=== PATIENT | female | born 1945 | race Caucasian/White ===

== ENCOUNTER → 2022-09-06 13:02 | Outpatient (BNVA) | payer MEDICARE, MEDICAID, SELFPAY | PROVIDERS: PCP Internal Medicine; Visit Provider Student in an Organized Health Care Education/Training Program | DX: M06.9 Rheumatoid arthritis, unspecified (principal); I73.9 Peripheral vascular disease, unspecified; R06.02 Shortness of breath; Z11.59 Encounter for screening for other viral diseases; Z11.7 Encounter for testing for latent tuberculosis infection; Z13.21 Encounter for screening for nutritional disorder | CPT/HCPCS: 99202 ==

== ENCOUNTER → 2022-12-06 12:53 | Outpatient (BNVA) | payer MEDICARE, MEDICAID, SELFPAY | PROVIDERS: PCP Internal Medicine; Visit Provider Student in an Organized Health Care Education/Training Program | DX: M06.9 Rheumatoid arthritis, unspecified (principal); R06.02 Shortness of breath; M85.80 Other specified disorders of bone density and structure, unspecified site; N95.1 Menopausal and female climacteric states; Z79.631 Long term (current) use of antimetabolite agent | CPT/HCPCS: 99212 ==

== ENCOUNTER 2023-05-29 13:42 | Outpatient (AMB) | payer MEDICARE, MEDICAID, SELFPAY ==
[2023-05-29 13:46] VITALS: BP 120/62; PULSE 73; TEMP 36.2; O2SAT 95; BMI 33.3
--- NOTE | 2023-05-29 13:46 | A.OFFVIS_ITS ---
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: No Accompanied by: Spouse Allergies betadyne Allergy (Unknown, Uncoded 05/29/23 13:48) Unknown Medication List - Last Reconciled 05/29/23 by Robin Bullard MD abatacept (Orencia ClickJect) 125 mg subcut QWEEK acetaminophen (Tylenol Extra Strength) 500 mg PO TID atenolol 50 mg PO DAILY calcitriol 0.5 mcg PO .weekly calcitriol 0.5 mcg PO .weekly cevimeline 30 mg PO TID cholecalciferol (vitamin D3) 25 mcg PO DAILY folic acid 1 mg PO DAILY lidocaine 5% 1 patch topical DAILY losartan 50 mg PO DAILY losartan 25 mg PO BEDTIME magnesium 400 mg PO DAILY magnesium 400 mg PO BEDTIME methotrexate sodium 10 mg (4 x 2.5 mg) PO QWEEK multivitamin 1 tab PO DAILY omega-3 fatty acids 1,000 mg PO DAILY omeprazole 20 mg PO BID rosuvastatin 40 mg PO DAILY saliva substitute combo no.9 (Biotene Dry Mouth Oral Rinse mouthwash) 15 mL mucous membrane TID-QID PRN torsemide 10 mg PO DAILY venlafaxine ER 75 mg PO DAILY HPI HPI Comments History of Present Illness Details 78-year-old female with erosive RA retur ns for follow-up. Compliant with Orencia once weekly and methotrexate 4 tabs once weekly. Doing well overall. Patient states that she was evaluated by fuel quality tech and had PFTs done. Results not available to me. Will attempt to retrieve. Her joint pain has not changed. States that will be scheduled for right shoulder replacement in August. States that she has been more active recently as her had a stroke. Now she is the one who has to drive. Initial history: This is a 77-year-old female with a history of anxiety, obstructive sleep apnea, hypertension, fibromyalgia, dyslipidemia who presents for rheumatoid arthritis. Patient was diagnosed with rheumatoid arthritis more than [address] Garrett. She is not aware of her previous DMARDs but she had been on the combination p.o. methotrexate and weekly Orencia for more than 5 years with apparent good control of her RA. Patient states that her RA is currently well controlled. Her main complaint is left foot pain. [facility] Medical History (Updated 05/29/23 @ 14:43 by Robin Bullard MD) Transient global amnesia Chronic ankle pain Edema, lower extremity Fibromyalgia Spinal stenosis of lumbar region Rheumatoid arthritis GERD (gastroesophageal reflux disease) Chronic diastolic heart failure Essential hypertension Autonomic neuropathy GRACIELA (obstructive sleep apnea) Depression Obesity Mixed hyperlipidemia Surgical History History of cataract surgery History of right hip replacement History of left hip replacement S/P right rotator cuff repair History of left knee replacement History of total right knee replacement H/O right wrist surgery S/P insertion of spinal cord stimulator Hx of colonoscopy H/O arthroscopy of shoulder History of back surgery Hx of appendectomy History of mitral valve repair Family History Father Prostate cancer Mother Colon cancer Social History Household Members: Spouse Housing: House Alcohol intake: current Alcohol intake frequency: holidays/special occasions only Alcohol type: wine Patient Tobacco Use Status: Never used Tobacco e-Cigarette/Vaping Use: Never Used service: No Current occupational status: retired 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 Review of Systems Card Reports dyspnea Resp Reports dyspnea GI Reports no additional complaints Musc Reports arthralgias and Reports stiffness Physical Exam Vital Signs: Last Vital Signs Temp 97.2 F 05/29/23 13:46 Pulse 73 05/29/23 13:46 BP 120/62 05/29/23 13:46 Pulse Ox 95 05/29/23 13:46 BMI result Body Mass Index 33.3 Const General: cooperative, healthy appearing, comfortable and no acute distress Nutritional Appearance: obese Orientation/consciousness: patient oriented x3 Limitations: ambulation with cane HEENT Head: Yes normocephalic and Yes atraumatic Mouth: oropharynx normal Resp Effort & Inspection: able to speak in complete sentences Auscultation: clear to auscultation bilaterally Cardio Rate: regular rate Rhythm: regular rhythm GI Inspection: No distended Palpation (GI): Soft to palpation and nontender Skin Other: Hirsutism Neuro General: patient oriented x3 Extrem Other: sequelae of deforming RA Bilateral wrist synovial thickening and hypertrophy of left wrist there does not seem to be active synovitis Bilateral significant synovial thickening of the MCPs Osteoarthritic changes of both hands Normal range of motion of both shoulders Bilateral claw feet deformity Purplish discoloration left foot, cool to touch Normal nailfold capillaroscopy Results Reviewed Results Reviewed: Labs 05/2022? ESR 4 CBC? With mild absolute lymphocytosis 3.18 (<3.1) few atypical lymphocytes CRP normal CMP unremarkable except for creatinine 1.0 with GFR 58 Labs in 09/2022 RF/CCP negative Normal SPEP ESR/CRP normal Hepatitis panel and T spot negative Assessment & Plan Assessment & Plan (1) Rheumatoid arthritis: Comment: Per notes it states that it is seropositive Labs in 10/03 showed negative RF negative CCP Code(s): M06.9 - Rheumatoid arthritis, unspecified Qualifiers: Rheumatoid arthritis location: multiple sites Rheumatoid factor presence: unspecified presence Qualified Code(s): M06.9 - Rheumatoid arthritis, unspecified Plan: This is a 78-year-old female with deforming RA presents for follow-up. RA well controlled on current regimen of methotrexate 10 mg once weekly and Orencia 125 mg once weekly Continue Orencia weekly and methotrexate 10 mg weekly, folic acid 1 mg a Patient's left foot is purplish and cool to touch. Bilateral lower extremity ABIs within normal. Per neurology this can be sequelae of peripheral neuropathy and sequelae of parietal region of traumatic brain injury Labs before next visit in 4 months (2) Shortness of breath: Code(s): R06.02 - Shortness of breath Plan: gets short of breath with minimal activity unclear whether this is cardiogenic verses pulmonary. Patient was evaluated by a fuel quality tech and PFTs were ordered. Will attempt to retrieve the PFTs. 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 Discussed risks and benefits of bisphosphonates. Patient agreed to proceed. Will hold off until after her right shoulder replacement which is planned for August. Plan I spent 29 minutes reviewing patient's chart, evaluating patient, ordering diagnostic workup, counseling patient and documenting in the chart Orders: Orders Complete Blood Count Auto Diff 4 Months M06.9 - Rheumatoid arthritis, unspecified C Reactive Protein 4 Months M06.9 - Rheumatoid arthritis, unspecified Erythrocyte Sedimentation Rate 4 Months M06.9 - Rheumatoid arthritis, unspecified Comprehensive Met. Panel 4 Months M06.9 - Rheumatoid arthritis, unspecified Coding Level of Care Code Est Pt Level 4 (45849) Diagnoses Rheumatoid arthritis involving multiple sites, unspecified whether rheumatoid factor present M06.9 Rheumatoid arthritis location: multiple sites Rheumatoid factor presence: unspecified presence Shortness of breath R06.02 Methotrexate, prison, current use Z79.631 Age-related osteoporosis without current pathological fracture M81.0 Osteoporosis type: age-related Presence of current pathological fracture: without current pathological fracture
== END 2023-05-29 14:16 | disposition home or self-care (01) ==
PROVIDERS: PCP Internal Medicine; Visit Provider Student in an Organized Health Care Education/Training Program
DX: M06.9 Rheumatoid arthritis, unspecified (principal); R06.02 Shortness of breath; Z79.631 Long term (current) use of antimetabolite agent; M81.0 Age-related osteoporosis without current pathological fracture
CPT/HCPCS: 99214

== ENCOUNTER → 2023-05-29 13:42 | Outpatient (BNVA) | payer MEDICARE, MEDICAID, SELFPAY | PROVIDERS: PCP Internal Medicine; Visit Provider Student in an Organized Health Care Education/Training Program | DX: M06.9 Rheumatoid arthritis, unspecified (principal); M81.0 Age-related osteoporosis without current pathological fracture; R06.02 Shortness of breath; Z79.631 Long term (current) use of antimetabolite agent | CPT/HCPCS: 99212 ==

== ENCOUNTER 2023-09-28 14:05 | Outpatient (AMB) | payer MEDICARE, MEDICAID, SELFPAY ==
--- NOTE | 2023-09-28 14:14 | A.OFFVIS_ITS ---
Intake Vital Signs 09/28/23 14:17 Height 5 ft 4 in Weight 175 lb 0.752 oz BMI 30.0 BP 130/70 Blood Pressure Location Lt brachial Position Sitting Pulse 73 Pulse Source Pulse Oximeter Temp 97 F Temp Source Skin Pulse Oximetry (%) 94 Oxygen Delivery Method Room Air Intake Visit Reasons: RA Intake Note: Pt last seen 05/29/23 presents today for follow up and test results. Would like to discuss osteoporosis medication. 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 Required: No Accompanied by: Spouse Allergies betadyne Allergy (Unknown, Uncoded 05/29/23 13:48) Unknown Medication List - Last Reconciled 09/28/23 by Robin Bullard MD acetaminophen (Tylenol Extra Strength) 500 mg PO TID atenolol 50 mg PO DAILY calcitriol 0.5 mcg PO .weekly calcitriol 0.5 mcg PO .weekly cevimeline 1 cap PO TID cholecalciferol (vitamin D3) 25 mcg PO DAILY folic acid 1 mg PO DAILY lidocaine 5% 1 patch topical DAILY losartan 50 mg PO DAILY losartan 25 mg PO BEDTIME magnesium 400 mg PO DAILY methotrexate sodium 10 mg (4 x 2.5 mg) PO QWEEK multivitamin 1 tab PO DAILY omega-3 fatty acids 1,000 mg PO DAILY omeprazole 20 mg PO BID Orencia ClickJect (abatacept) 125 mg subcut QWEEK NS rosuvastatin 40 mg PO DAILY saliva substitute combo no.9 (Biotene Dry Mouth Oral Rinse mouthwash) 15 mL mucous membrane TID-QID PRN torsemide 10 mg PO DAILY venlafaxine ER 75 mg PO DAILY HPI HPI Comments History of Present Illness Details 78-year-old female with erosive RA retur ns for follow-up. Compliant with Orencia once weekly and methotrexate 4 tabs once weekly. Doing well overall. Her joint pain has not changed. Patient was scheduled for shoulder replacement in August but she postponed it as her will need to have another back surgery and she will be taking care of him. Shoulder surgery is postponed until November. She was found to have a retinal tear and she was referred to a retina specialist. She is scheduled for a retinal procedure in early October. Initial history: This is a 77-year-old female with a history of anxiety, obstructive sleep apnea, hypertension, fibromyalgia, dyslipidemia who presents for rheumatoid arthritis. Patient was diagnosed with rheumatoid arthritis more than [address] Garrett. She is not aware of her previous DMARDs but she had been on the combination p.o. methotrexate and weekly Orencia for more than 5 years with apparent good control of her RA. Patient states that her RA is currently well controlled. Her main complaint is left foot pain. [facility] Medical History Transient global amnesia Chronic ankle pain Edema, lower extremity Fibromyalgia Spinal stenosis of lumbar region Rheumatoid arthritis GERD (gastroesophageal reflux disease) Chronic diastolic heart failure Essential hypertension Autonomic neuropathy GRACIELA (obstructive sleep apnea) Depression Obesity Mixed hyperlipidemia Surgical History History of cataract surgery History of right hip replacement History of left hip replacement S/P right rotator cuff repair History of left knee replacement History of total right knee replacement H/O right wrist surgery S/P insertion of spinal cord stimulator Hx of colonoscopy H/O arthroscopy of shoulder History of back surgery Hx of appendectomy History of mitral valve repair Family History Father Prostate cancer Mother Colon cancer Social History Household Members: Spouse Housing: House Alcohol intake: current Alcohol intake frequency: holidays/special occasions only Alcohol type: wine Patient Tobacco Use Status: Never used Tobacco e-Cigarette/Vaping Use: Never Used service: No Current occupational status: retired 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 Review of Systems GI Reports no additional complaints Musc Reports arthralgias and Reports stiffness Physical Exam Vital Signs: Last Vital Signs Temp 97 F 09/28/23 14:17 Pulse 73 09/28/23 14:17 BP 130/70 09/28/23 14:17 Pulse Ox 94 09/28/23 14:17 Oxygen Delivery Method Room Air 09/28/23 14:17 BMI result Body Mass Index 30.0 Const General: cooperative, healthy appearing, comfortable and no acute distress Nutritional Appearance: obese Orientation/consciousness: patient oriented x3 Limitations: ambulation with cane HEENT Head: Yes normocephalic and Yes atraumatic Mouth: oropharynx normal Resp Effort & Inspection: able to speak in complete sentences Auscultation: clear to auscultation bilaterally Cardio Rate: regular rate Rhythm: regular rhythm GI Inspection: No distended Palpation (GI): Soft to palpation and nontender Skin Other: Hirsutism Neuro General: patient oriented x3 Extrem Other: sequelae of deforming RA Bilateral wrist synovial thickening and hypertrophy of left wrist there does not seem to be active synovitis Bilateral significant synovial thickening of the MCPs Osteoarthritic changes of both hands Normal range of motion of both shoulders Bilateral claw feet deformity Purplish discoloration left foot, not cool to touch today Normal nailfold capillaroscopy Results Reviewed Results Reviewed: Labs 05/2022? ESR 4 CBC? With mild absolute lymphocytosis 3.18 (<3.1) few atypical lymphocytes CRP normal CMP unremarkable except for creatinine 1.0 with GFR 58 Labs in 09/2022 RF/CCP negative Normal SPEP ESR/CRP normal Hepatitis panel and T spot negative PFTs 04/2023? TLC 86%? DLCO 70% (not adjusted for hemoglobin) Interpretation: Spirometry is normal? No significant response to bronchodilator.? TLC is normal.? The diffusing capacity is mildly reduced although not adjusted for hemoglobin. Assessment & Plan Assessment & Plan (1) Rheumatoid arthritis: Comment: Per notes it states that it is seropositive Labs in 10/03 showed negative RF negative CCP Code(s): M06.9 - Rheumatoid arthritis, unspecified Qualifiers: Rheumatoid arthritis location: multiple sites Rheumatoid factor presence: unspecified presence Qualified Code(s): M06.9 - Rheumatoid arthritis, unspecified Plan: This is a 78-year-old female with deforming RA presents for follow-up. RA well controlled on current regimen of methotrexate 10 mg once weekly and Orencia 125 mg once weekly Continue Orencia weekly and methotrexate 10 mg weekly, folic acid 1 mg daily Patient's left foot is purplish and cool to touch. Bilateral lower extremity ABIs within normal. Per neurology this can be sequelae of peripheral neuropathy and sequelae of parietal region of traumatic brain injury Labs before next visit in 4 months (per patient there is a standing order at [facility] laboratory) (2) Shortness of breath: Code(s): R06.02 - Shortness of breath Plan: PFTs not consistent with interstitial lung disease. 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 Discussed risks and benefits of bisphosphonates. Patient agreed to proceed. Will hold off until after her right shoulder replacement which is planned for August. 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
[2023-09-28 14:17] VITALS: BP 130/70; PULSE 73; TEMP 36.1; O2SAT 94
== END 2023-09-28 14:55 | disposition home or self-care (01) ==
PROVIDERS: PCP Internal Medicine; Visit Provider Student in an Organized Health Care Education/Training Program
DX: M06.9 Rheumatoid arthritis, unspecified (principal); R06.02 Shortness of breath; Z79.631 Long term (current) use of antimetabolite agent; M81.0 Age-related osteoporosis without current pathological fracture
CPT/HCPCS: 99214

== ENCOUNTER → 2023-09-28 14:05 | Outpatient (BNVA) | payer MEDICARE, MEDICAID, SELFPAY | PROVIDERS: PCP Internal Medicine; Visit Provider Student in an Organized Health Care Education/Training Program | DX: M06.9 Rheumatoid arthritis, unspecified (principal); M81.0 Age-related osteoporosis without current pathological fracture; R06.02 Shortness of breath; Z79.631 Long term (current) use of antimetabolite agent | CPT/HCPCS: 99212 ==

== ENCOUNTER 2024-01-29 10:30 | Outpatient (AMB) | payer MEDICARE, MEDICAID, SELFPAY ==
--- NOTE | 2024-01-29 10:42 | MHC.OFFVIS ---
Vital Signs 01/29/24 10:43 Height 5 ft 4 in Weight 190 lb 7.67 oz BMI 32.7 BP 134/80 Blood Pressure Location Lt brachial Position Sitting Pulse 71 Pulse Source Pulse Oximeter Pulse Oximetry (%) 98 Oxygen Delivery Method Room Air Intake Visit Reasons: RA Intake Note: Patient last seen 09/28/23 presents today for follow up and test results. S/p right shoulder replacement [facility] [address] [place]. Reports pain in right shoulder , states she over used her arm over the weekend. Early Childhood Required: No Accompanied by: Spouse Allergies betadyne Allergy (Unknown, Uncoded 01/29/24 10:55) Unknown Medication List - Last Reconciled 01/29/24 by Robin Bullard MD acetaminophen (Tylenol Extra Strength) 500 mg PO TID alendronate 70 mg PO QWEEK atenolol 50 mg PO DAILY calcitriol 0.5 mcg PO QWEEK cevimeline 1 cap PO TID cholecalciferol (vitamin D3) 25 mcg PO DAILY folic acid 1 mg PO DAILY lidocaine 5% 1 patch topical DAILY losartan 50 mg PO DAILY losartan 25 mg PO BEDTIME magnesium 400 mg PO DAILY methotrexate sodium 10 mg (4 x 2.5 mg) PO QWEEK multivitamin 1 tab PO DAILY omega-3 fatty acids 1,000 mg PO DAILY omeprazole 20 mg PO BID Orencia ClickJect (abatacept) 125 mg subcut QWEEK NS rosuvastatin 40 mg PO DAILY saliva substitute combo no.9 (Biotene Dry Mouth Oral Rinse mouthwash) 15 mL mucous membrane TID-QID PRN torsemide 10 mg PO DAILY venlafaxine ER 75 mg PO DAILY HPI Comments Details: 78-year-old female with erosive RA returns for follow-up. Compliant with Orencia once weekly and methotrexate 4 tabs once weekly. Doing well overall. She is s/p right shoulder replacement about 2 months ago with remarkable results. She has almost normal range of motion right hand. She is doing PT to strengthen her shoulder and work on her balance. Initial history: This is a 77-year-old female with a history of anxiety, obstructive sleep apnea, hypertension, fibromyalgia, dyslipidemia who presents for rheumatoid arthritis. Patient was diagnosed with rheumatoid arthritis more than [address] Garrett. She is not aware of her previous DMARDs but she had been on the combination p.o. methotrexate and weekly Orencia for more than 5 years with apparent good control of her RA. Patient states that her RA is currently well controlled. Her main complaint is left foot pain. [facility] Medical History (Updated 01/29/24 @ 11:20 by Robin Bullard MD) Transient global amnesia Chronic ankle pain Edema, lower extremity Fibromyalgia Spinal stenosis of lumbar region Rheumatoid arthritis GERD (gastroesophageal reflux disease) Chronic diastolic heart failure Essential hypertension Autonomic neuropathy GRACIELA (obstructive sleep apnea) Depression Obesity Mixed hyperlipidemia Surgical History (Updated 01/29/24 @ 11:20 by Robin Bullard MD) S/P shoulder joint replacement History of cataract surgery History of right hip replacement History of left hip replacement S/P right rotator cuff repair History of left knee replacement History of total right knee replacement H/O right wrist surgery S/P insertion of spinal cord stimulator Hx of colonoscopy H/O arthroscopy of shoulder History of back surgery Hx of appendectomy History of mitral valve repair Family History Father Prostate cancer Mother Colon cancer Social History Household Members: Spouse Housing: House Alcohol intake: current Alcohol intake frequency: holidays/special occasions only Alcohol type: wine Patient Tobacco Use Status: Never used Tobacco e-Cigarette/Vaping Use: Never Used service: No Current occupational status: retired 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 Review of Systems GI Reports no additional complaints Physical Exam Vital Signs: Last Vital Signs Pulse 71 01/29/24 10:43 BP 134/80 01/29/24 10:43 Pulse Ox 98 01/29/24 10:43 Oxygen Delivery Method Room Air 01/29/24 10:43 BMI result Body Mass Index 32.7 Const General: cooperative, healthy appearing, comfortable and no acute distress Nutritional Appearance: obese Orientation/consciousness: patient oriented x3 Limitations: ambulation with cane HEENT Head: Yes normocephalic and Yes atraumatic Mouth: oropharynx normal Resp Effort & Inspection: able to speak in complete sentences Auscultation: clear to auscultation bilaterally Cardio Rate: regular rate Rhythm: regular rhythm GI Inspection: No distended Palpation (GI): Soft to palpation and nontender Skin Other: Hirsutism Neuro General: patient oriented x3 Extrem Other: sequelae of deforming RA Bilateral wrist synovial thickening and hypertrophy of left wrist there does not seem to be active synovitis Bilateral significant synovial thickening of the MCPs Osteoarthritic changes of both hands Normal range of motion of both shoulders Bilateral claw feet deformity Purplish discoloration left foot, not cool to touch today Normal nailfold capillaroscopy Results Reviewed Results Reviewed: Labs 05/2022? ESR 4 CBC? With mild absolute lymphocytosis 3.18 (<3.1) few atypical lymphocytes CRP normal CMP unremarkable except for creatinine 1.0 with GFR 58 Labs in 09/2022 RF/CCP negative Normal SPEP ESR/CRP normal Hepatitis panel and T spot negative PFTs 04/2023? TLC 86%? DLCO 70% (not adjusted for hemoglobin) Interpretation: Spirometry is normal? No significant response to bronchodilator.? TLC is normal.? The diffusing capacity is mildly reduced although not adjusted for hemoglobin. Assessment & Plan Assessment & Plan (1) Rheumatoid arthritis: Comment: Per notes it states that it is seropositive Labs in 10/03 showed negative RF negative CCP Code(s): M06.9 - Rheumatoid arthritis, unspecified Category: Medical Qualifiers: Rheumatoid arthritis location: multiple sites Rheumatoid factor presence: unspecified presence Qualified Code(s): M06.9 - Rheumatoid arthritis, unspecified Plan: This is a 78-year-old female with deforming RA presents for follow-up. RA well controlled on current regimen of methotrexate 10 mg once weekly and Orencia 125 mg once weekly Continue Orencia weekly and methotrexate 10 mg weekly, folic acid 1 mg daily Patient's left foot is purplish and cool to touch. Bilateral lower extremity ABIs within normal. Per neurology this can be sequelae of peripheral neuropathy and sequelae of parietal region of traumatic brain injury Labs before next visit in 4 months (2) Methotrexate, shelter, current use: Code(s): Z79.631 - long term acute care registered nurse (current) use of antimetabolite agent Category: Medical Plan: Monitor safety labs (3) Osteoporosis: Comment: DEXA 01/2023 Right total forearm T-score -3.7 Right 1/3 forearm T-score -4.3 Right UD forearm T-score -1.9 Bilateral hip replacements. Right shoulder replacement Code(s): M81.0 - Age-related osteoporosis without current pathological fracture Category: Medical Qualifiers: Osteoporosis type: age-related Presence of current pathological fracture: without current pathological fracture Qualified Code(s): M81.0 - Age-related osteoporosis without current pathological fracture Plan: No known history of fractures. Discussed risks and benefits of bisphosphonates. Patient agreed to proceed. Start alendronate 70 mg weekly. Continue with vitamin-D (4) Keratoconjunctivitis sicca: Code(s): M35.01 - Sjogren syndrome with keratoconjunctivitis Category: Medical Plan: Patient has known history of Sjogren's for years with dry eyes and dry mouth. Well controlled with cevimeline. Continue with cevimeline t.i.d. Plan I spent 29 minutes reviewing patient's chart, evaluating patient, ordering diagnostic workup, counseling patient and documenting in the chart Orders: Orders Erythrocyte Sedimentation Rate 4 Months M06.9 - Rheumatoid arthritis, unspecified, Z79.631 - long term acute care registered nurse (current) use of antimetabolite agent Complete Blood Count Auto Diff 4 Months M06.9 - Rheumatoid arthritis, unspecified, Z79.631 - long term acute care registered nurse (current) use of antimetabolite agent Comprehensive Met. Panel 4 Months M06.9 - Rheumatoid arthritis, unspecified, Z79.631 - long term acute care registered nurse (current) use of antimetabolite agent C Reactive Protein 4 Months M06.9 - Rheumatoid arthritis, unspecified, Z79.631 - retirement (current) use of antimetabolite agent Medications: New alendronate Take 1 tab once weekly, 1st thing in the morning, on an empty stomach, with a large glass of water (at least 6 oz) and stay upright for 30 minutes 70 mg PO QWEEK 12 tabs 0RF Coding Level of Care Code Est Pt Level 4 (53045) Complex EM visit Add On G2211 Diagnoses Rheumatoid arthritis involving multiple sites, unspecified whether rheumatoid factor present M06.9 Rheumatoid arthritis location: multiple sites Rheumatoid factor presence: unspecified presence Methotrexate, shelter, current use Z79.631 Age-related osteoporosis without current pathological fracture M81.0 Osteoporosis type: age-related Presence of current pathological fracture: without current pathological fracture Keratoconjunctivitis sicca M35.01
[2024-01-29 10:43] VITALS: BP 134/80; PULSE 71; O2SAT 98; BMI 32.7
== END 2024-01-29 11:14 | disposition home or self-care (01) ==
PROVIDERS: PCP Internal Medicine; Visit Provider Student in an Organized Health Care Education/Training Program
DX: M06.9 Rheumatoid arthritis, unspecified (principal); Z79.631 Long term (current) use of antimetabolite agent; M81.0 Age-related osteoporosis without current pathological fracture; M35.01 Sjogren syndrome with keratoconjunctivitis
CPT/HCPCS: 99214; G2211

== ENCOUNTER → 2024-01-29 10:30 | Outpatient (BNVA) | payer MEDICARE, MEDICAID, SELFPAY | PROVIDERS: PCP Internal Medicine; Visit Provider Student in an Organized Health Care Education/Training Program | DX: M06.9 Rheumatoid arthritis, unspecified (principal); M81.0 Age-related osteoporosis without current pathological fracture; Z79.631 Long term (current) use of antimetabolite agent | CPT/HCPCS: 99212 ==

== ENCOUNTER 2024-06-03 13:21 | Outpatient (AMB) | payer MEDICARE, MEDICAID, SELFPAY ==
[2024-06-03 13:25] VITALS: BP 130/68; PULSE 71; O2SAT 94; BMI 33.8
--- NOTE | 2024-06-03 13:25 | MHC.OFFVIS ---
Vital Signs 06/03/24 13:25 Height 5 ft 4 in Weight 196 lb 13.965 oz BMI 33.8 BP 130/68 Blood Pressure Location Lt brachial Position Sitting Pulse 71 Pulse Source Pulse Oximeter Pulse Oximetry (%) 94 Oxygen Delivery Method Room Air Intake Visit Reasons: RA Intake Note: Patient is here to follow up on RA, also CT scan. She would like to be informed of when she when to start Alendronate again. Accompanied by: Spouse Allergies betadyne Allergy (Mild, Uncoded 06/03/24 13:33) Itchy Medication List - Last Reconciled 06/03/24 by Robin Bullard MD acetaminophen (Tylenol Extra Strength) 500 mg PO TID alendronate 70 mg PO QWEEK atenolol 50 mg PO DAILY calcitriol 0.5 mcg PO QWEEK cevimeline 1 cap PO TID cholecalciferol (vitamin D3) 25 mcg PO DAILY folic acid 1 mg PO DAILY lidocaine 5% 1 patch topical DAILY losartan 50 mg PO DAILY losartan 25 mg PO BEDTIME magnesium 400 mg PO DAILY methotrexate sodium 10 mg (4 x 2.5 mg) PO QWEEK multivitamin 1 tab PO DAILY omega-3 fatty acids 1,000 mg PO DAILY omeprazole 20 mg PO BID Orencia ClickJect (abatacept) 125 mg subcut QWEEK NS rosuvastatin 40 mg PO DAILY saliva substitute combo no.9 (Biotene Dry Mouth Oral Rinse mouthwash) 15 mL mucous membrane TID-QID PRN torsemide 10 mg PO DAILY venlafaxine ER 75 mg PO DAILY HPI Comments Details: 79-year-old female with erosive RA returns for follow-up. Compliant with Orencia once weekly and methotrexate 4 tabs once weekly. About a month ago she tripped and fell at home, she fell hard on her left knee. She went to the emergency room [address] of the hip was done which showed a fracture of her left femur. Orthopedist were contacted and no specific treatment was ordered. She saw an orthopedist in her office later and no surgery was recommended. She will go back to orthopedist in about 2 weeks. She has held her alendronate since she found out she had a fracture. Initial history: This is a 77-year-old female with a history of anxiety, obstructive sleep apnea, hypertension, fibromyalgia, dyslipidemia who presents for rheumatoid arthritis. Patient was diagnosed with rheumatoid arthritis more than [address] Garrett. She is not aware of her previous DMARDs but she had been on the combination p.o. methotrexate and weekly Orencia for more than 5 years with apparent good control of her RA. Patient states that her RA is currently well controlled. Her main complaint is left foot pain. [facility] Medical History Transient global amnesia Chronic ankle pain Edema, lower extremity Fibromyalgia Spinal stenosis of lumbar region Rheumatoid arthritis GERD (gastroesophageal reflux disease) Chronic diastolic heart failure Essential hypertension Autonomic neuropathy GRACIELA (obstructive sleep apnea) Depression Obesity Mixed hyperlipidemia Surgical History S/P shoulder joint replacement History of cataract surgery History of right hip replacement History of left hip replacement S/P right rotator cuff repair History of left knee replacement History of total right knee replacement H/O right wrist surgery S/P insertion of spinal cord stimulator Hx of colonoscopy H/O arthroscopy of shoulder History of back surgery Hx of appendectomy History of mitral valve repair Family History Father Prostate cancer Mother Colon cancer Social History Household Members: Spouse Housing: House Alcohol intake: current Alcohol intake frequency: holidays/special occasions only Alcohol type: wine Patient Tobacco Use Status: Never used Tobacco e-Cigarette/Vaping Use: Never Used service: No Current occupational status: retired 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 Review of Systems Musc Reports abnormal gait, Reports arthralgias, Reports limited range of motion and Reports stiffness Neuro Reports abnormal gait Physical Exam Vital Signs: Last Vital Signs Pulse 71 06/03/24 13:25 BP 130/68 06/03/24 13:25 Pulse Ox 94 06/03/24 13:25 Oxygen Delivery Method Room Air 06/03/24 13:25 BMI result Body Mass Index 33.8 Const General: cooperative, healthy appearing, comfortable and no acute distress Nutritional Appearance: obese Orientation/consciousness: patient oriented x3 Limitations: ambulation with walker HEENT Head: Yes normocephalic and Yes atraumatic Mouth: oropharynx normal Resp Effort & Inspection: normal respiratory effort and able to speak in complete sentences Auscultation: clear to auscultation bilaterally Cardio Rate: regular rate Rhythm: regular rhythm GI Inspection: No distended Palpation (GI): Soft to palpation and nontender Skin Other: Hirsutism General skin exam: no rashes or lesions noted Neuro General: patient oriented x3 Extrem Other: Walks slowly and with a limp. sequelae of deforming RA Bilateral wrist synovial thickening and hypertrophy of left wrist there does not seem to be active synovitis Bilateral significant synovial thickening of the MCPs Osteoarthritic changes of both hands Normal range of motion of both shoulders Bilateral claw feet deformity Purplish discoloration left foot, not cool to touch today Normal nailfold capillaroscopy Assessment & Plan Assessment & Plan (1) Rheumatoid arthritis: Comment: Per notes it states that it is seropositive Labs in 10/03 showed negative RF negative CCP Code(s): M06.9 - Rheumatoid arthritis, unspecified Category: Medical Qualifiers: Rheumatoid arthritis location: multiple sites Rheumatoid factor presence: unspecified presence Qualified Code(s): M06.9 - Rheumatoid arthritis, unspecified Plan: This is a 79-year-old female with deforming RA presents for follow-up. RA well controlled on current regimen of methotrexate 10 mg once weekly and Orencia 125 mg once weekly Continue Orencia weekly and methotrexate 10 mg weekly, folic acid 1 mg daily Patient's left foot is purplish and cool to touch. Bilateral lower extremity ABIs within normal. Per neurology this can be sequelae of peripheral neuropathy and sequelae of parietal region of traumatic brain injury Labs before next visit in 4 months (2) Methotrexate, terminal make up operator, current use: Code(s): Z79.631 - terminal gauger supervisor (current) use of antimetabolite agent Category: Medical Plan: Monitor safety labs (3) Osteoporosis: Comment: DEXA 01/2023 Right total forearm T-score -3.7 Right 1/3 forearm T-score -4.3 Right UD forearm T-score -1.9 Bilateral hip replacements. Right shoulder replacement Alendronate 01/2024 Code(s): M81.0 - Age-related osteoporosis without current pathological fracture Category: Medical Qualifiers: Osteoporosis type: age-related Presence of current pathological fracture: without current pathological fracture Qualified Code(s): M81.0 - Age-related osteoporosis without current pathological fracture Plan: Patient held her alendronate since her left femur fracture a month ago. Advised patient to restart alendronate 70 mg once weekly (4) Keratoconjunctivitis sicca: Code(s): M35.01 - Sjogren syndrome with keratoconjunctivitis Category: Medical Plan: Patient has known history of Sjogren's for years with dry eyes and dry mouth. Well controlled with cevimeline. Continue with cevimeline t.i.d. (5) Closed left femoral fracture: Code(s): S72.92XA - Unspecified fracture of left femur, initial encounter for closed fracture Category: Medical Qualifiers: Encounter type: initial encounter Fracture alignment: nondisplaced Plan: Follow-up with orthopedics Plan I spent 39 minutes reviewing patient's chart, evaluating patient, ordering diagnostic workup, counseling patient and documenting in the chart Orders: Orders Complete Blood Count Auto Diff 4 Months M06.9 - Rheumatoid arthritis, unspecified, Z79.631 - terminal gauger supervisor (current) use of antimetabolite agent C Reactive Protein 4 Months M06.9 - Rheumatoid arthritis, unspecified, Z79.631 - senior care (current) use of antimetabolite agent Comprehensive Met. Panel 4 Months M06.9 - Rheumatoid arthritis, unspecified, Z79.631 - terminal gauger supervisor (current) use of antimetabolite agent Erythrocyte Sedimentation Rate 4 Months M06.9 - Rheumatoid arthritis, unspecified, Z79.631 - terminal gauger supervisor (current) use of antimetabolite agent Coding Level of Care Code Est Pt Level 5 (71897) Diagnoses Rheumatoid arthritis involving multiple sites, unspecified whether rheumatoid factor present M06.9 Rheumatoid arthritis location: multiple sites Rheumatoid factor presence: unspecified presence Methotrexate, custodial, current use Z79.631 Age-related osteoporosis without current pathological fracture M81.0 Osteoporosis type: age-related Presence of current pathological fracture: without current pathological fracture Keratoconjunctivitis sicca M35.01 Closed left femoral fracture S72.92XA Encounter type: initial encounter Fracture alignment: nondisplaced
== END 2024-06-03 14:07 | disposition home or self-care (01) ==
PROVIDERS: PCP Internal Medicine; Visit Provider Student in an Organized Health Care Education/Training Program
DX: M06.9 Rheumatoid arthritis, unspecified (principal); Z79.631 Long term (current) use of antimetabolite agent; M81.0 Age-related osteoporosis without current pathological fracture; M35.01 Sjogren syndrome with keratoconjunctivitis; S72.92XA Unspecified fracture of left femur, initial encounter for closed fracture
CPT/HCPCS: 99214

== ENCOUNTER → 2024-06-03 13:21 | Outpatient (BNVA) | payer MEDICARE, MEDICAID, SELFPAY | PROVIDERS: PCP Internal Medicine; Visit Provider Student in an Organized Health Care Education/Training Program | DX: M06.9 Rheumatoid arthritis, unspecified (principal); M81.0 Age-related osteoporosis without current pathological fracture; M35.01 Sjogren syndrome with keratoconjunctivitis; S72.92XD Unspecified fracture of left femur, subsequent encounter for closed fracture with routine healing; W19.XXXD Unspecified fall, subsequent encounter; Z79.631 Long term (current) use of antimetabolite agent | CPT/HCPCS: 99212 ==

== ENCOUNTER 2024-10-15 14:10 | Outpatient (AMB) | payer MEDICARE, MEDICAID, SELFPAY ==
--- NOTE | 2024-10-15 14:12 | MHC.OFFVIS ---
Vital Signs 10/15/24 14:18 Height 5 ft 4 in Weight 207 lb 0.225 oz BMI 35.5 BP 112/74 Blood Pressure Location Lt brachial Position Sitting Pulse 74 Pulse Source Pulse Oximeter Pulse Oximetry (%) 92 Oxygen Delivery Method Room Air Intake Visit Reasons: RA Intake Note: Patient presents for RA. Allergies betadyne Allergy (Mild, Uncoded 06/03/24 13:33) Itchy Medication List - Last Reconciled 10/15/24 by Julia Goodman MD acetaminophen (Tylenol Extra Strength) 500 mg PO TID alendronate 70 mg PO QWEEK atenolol 50 mg PO DAILY calcitriol 0.5 mcg PO QWEEK cholecalciferol (vitamin D3) 25 mcg PO DAILY folic acid 1 mg PO DAILY lidocaine 5% 1 patch topical DAILY losartan 50 mg PO DAILY losartan 25 mg PO BEDTIME magnesium 400 mg PO DAILY methotrexate sodium 10 mg (4 x 2.5 mg) PO QWEEK multivitamin 1 tab PO DAILY omega-3 fatty acids 1,000 mg PO DAILY omeprazole 20 mg PO BID Orencia ClickJect (abatacept) 125 mg subcut QWEEK NS pilocarpine HCl 5 mg PO TID PRN rosuvastatin 40 mg PO DAILY saliva substitute combo no.9 (Biotene Dry Mouth Oral Rinse mouthwash) 15 mL mucous membrane TID-QID PRN torsemide 10 mg PO DAILY venlafaxine ER 75 mg PO DAILY HPI Comments Details: Patient is a 79-year-old female with hypertension complicated by peripheral vascular disease, hyperlipidemia, osteoporosis, Sjogren's syndrome with keratoconjunctivitis, rheumatoid arthritis unspecified whether or not it seropositive or seronegative here today for follow up Interval History: Patient last seen 06/03/[address] Bullard. At that time she was status post fall with subsequent fracture of her left femur. Seen by ortho with a plan to manage nonoperatively. With respect to her rheumatoid arthritis everything was overall stable. And no changes were made to her medications Today, Patient reports worsening pain in her hands especially involving her index finger on the right. Denies prolonged morning stiffness. Also complaining of numbness and tingling in the hands and is status post EMG which showed likely cubital tunnel syndrome for which she is following up with Neurology for. 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 Diagnosed around 2011 Unsure of any of her previous DMARDs but came to us on methotrexate and Orencia for more than 5 years and that has controlled her RA Also presented with sicca symptoms, SSA and SSB negative. Initially on cevimeline with improvement in her symptoms however this was changed to pilocarpine 07/2024 due to insurance issues Initial history: This is a 77-year-old female with a history of anxiety, obstructive sleep apnea, hypertension, fibromyalgia, dyslipidemia who presents for rheumatoid arthritis. Patient was diagnosed with rheumatoid arthritis more than [address] Garrett. She is not aware of her previous DMARDs but she had been on the combination p.o. methotrexate and weekly Orencia for more than 5 years with apparent good control of her RA. Patient states that her RA is currently well controlled. Her main complaint is left foot pain. Current Rheumatology Medication(s): Methotrexate 10mg weekly Folic acid 1 mg daily Orencia 125mg weekly Pilocarpine 5mg tid Alendronate 70mg weekly [facility] Medical History (Updated 10/15/24 @ 15:39 by Julia Goodman MD) half-way (current) use of immunosuppressive biologic Osteoarthritis of hands, bilateral Transient global amnesia Chronic ankle pain Edema, lower extremity Fibromyalgia Spinal stenosis of lumbar region Rheumatoid arthritis GERD (gastroesophageal reflux disease) Chronic diastolic heart failure Essential hypertension Autonomic neuropathy GRACIELA (obstructive sleep apnea) Depression Obesity Mixed hyperlipidemia Surgical History S/P shoulder joint replacement History of cataract surgery History of right hip replacement History of left hip replacement S/P right rotator cuff repair History of left knee replacement History of total right knee replacement H/O right wrist surgery S/P insertion of spinal cord stimulator Hx of colonoscopy H/O arthroscopy of shoulder History of back surgery Hx of appendectomy History of mitral valve repair Family History Father Prostate cancer Mother Colon cancer Social History Household Members: Spouse Housing: House Alcohol intake: current Alcohol intake frequency: holidays/special occasions only Alcohol type: wine Patient Tobacco Use Status: Never used Tobacco e-Cigarette/Vaping Use: Never Used service: No Current occupational status: retired 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 Review of Systems Const Details: Review of Systems Constitutional: Denies fever, chills, weight loss ENT: Denies vision changes, eye pain or eye redness, dental caries, dry mouth GI: Denies nausea, vomiting, diarrhea, abdominal pain, change in BM Pulm: Denies SOB, SPRAGUE, hemoptysis, wheezing Cards: Denies chest pain, palpitations Skin: Denies Raynaud's, rash, nail changes, photosensitivity, SYNTHETIC STAPLE EXTRUDER: Denies headaches, weakness, paresthesias, recurrent falls MSK: as per HPI All other systems reviewed and are unremarkable except noted above Physical Exam Vital Signs: Last Vital Signs Pulse 74 10/15/24 14:18 BP 112/74 10/15/24 14:18 Pulse Ox 92 10/15/24 14:18 Oxygen Delivery Method Room Air 10/15/24 14:18 BMI result Body Mass Index 35.5 Vital signs reviewed Physical Examination CONSTITUITIONAL Patient alert and cooperative. Well appearing and in no apparent painful distress HEENT Conjunctiva and sclera clear. ?Pupils equal round and reactive to light. ?No lymphadenopathy. ? CHEST/RESPIRATORY SYSTEM Normal respiratory effort and able to speak in complete sentences. ?Clear to auscultation bilaterally. ?No crackles, rales, rhonchi, wheezes heard. CARDIAC SYSTEM Regular rate and rhythm. ?S1 and S2 heard no murmurs. ?Radial pulses intact bilaterally MSK Hands: ?Good terrazzo polisher helper strength bilaterally. Significant Heberden's and Eva's nodes with deformities however there is no tenderness to palpation and no evidence of synovitis. Second and 3rd MCPs of bilateral hands with synovial hypertrophy. No tenderness to palpation.. Wrists: ?Full range of motion to the right wrist without any synovial hypertrophy left wrist with synovial hypertrophy but no tenderness to palpation. Surgical scar seen over the anterior of the forearm which is the location of her previous ulnar shortening surgery. Elbows: Full range of motion without pain. No tenderness, weakness, swelling, increased warmth or erythema. Shoulders: Full range of motion without pain. No tenderness, weakness, swelling, increased warmth or erythema. Knees: ?Full range of motion. ?No tenderness, swelling, increased warmth or erythema.? Bilateral crepitations no effusion felt. Ankles: Mild pitting edema to bilateral ankles noted. Left ankle with brace. Feet: ?Negative squeeze test. ?No tenderness to palpation or swelling of the MTPs SKIN Skin intact without rashes. Results Reviewed Results Reviewed: Labs reviewed in scanned documents Assessment & Plan Assessment & Plan (1) Rheumatoid arthritis: Comment: Per notes it states that it is seropositive Labs in 10/03 showed negative RF negative CCP Code(s): M06.9 - Rheumatoid arthritis, unspecified Category: Medical Qualifiers: Rheumatoid arthritis location: multiple sites Rheumatoid factor presence: unspecified presence Qualified Code(s): M06.9 - Rheumatoid arthritis, unspecified Plan: #Seronegative erosive RA Patient is a 79-year-old female with longstanding history of seronegative erosive rheumatoid arthritis. Her disease currently is in remission and her pain is likely due to her significant osteoarthritis We will continue her medications as prescribed no changes made today Plan - Methotrexate 10mg PO weekly - Folic acid 1mg Po daily - Orencia 125mg weekly SC - RTC 4 months - Labs before next visit: CBC, CMP, ESR, CRP, T spot and hepatitis panel (2) Keratoconjunctivitis sicca: Code(s): M35.01 - Sjogren syndrome with keratoconjunctivitis Category: Medical Plan: #Sjogrens syndrome Patient recently switched from cevimeline took pilocarpine due to insurance: The prior no longer being on formulary. We will need to monitor for any worsening of her dry mouth. She does note that she particularly has problems with dry mouth overnight when she uses her CPAP. She has tried humidifiers, even lozenges to help stimulate saliva production but this still continues to be an issue. At this time I have no further suggestions or recommendations. We will continue to monitor Plan - Pilocarpine 5mg tid - Biotene mouthwash 15mL daily - At next visit will need to order Sjogrens labs (3) Osteoarthritis of hands, bilateral: Code(s): M19.041 - Primary osteoarthritis, right hand; M19.042 - Primary osteoarthritis, left hand Category: Medical Qualifiers: Osteoarthritis type: other secondary Qualified Code(s): M19.241 - Secondary osteoarthritis, right hand; M19.242 - Secondary osteoarthritis, left hand Plan: #Bilateral hand OA Patient with significant bilateral hand OA likely on a background of her rheumatoid arthritis. I think that her pain currently is from her osteoarthritis and now her rheumatoid arthritis. Recommended topical diclofenac 4 times a day as well as copper gloves. Plan - Topical diclofenac 1% qid - Copper arthritis gloves (4) Osteoporosis: Comment: DEXA 01/2023 Right total forearm T-score -3.7 Right 1/3 forearm T-score -4.3 Right UD forearm T-score -1.9 Bilateral hip replacements. Right shoulder replacement Alendronate 01/2024 Code(s): M81.0 - Age-related osteoporosis without current pathological fracture Category: Medical Qualifiers: Osteoporosis type: age-related Presence of current pathological fracture: without current pathological fracture Qualified Code(s): M81.0 - Age-related osteoporosis without current pathological fracture Plan: #Osteoporosis with femur fracture Patient with osteoporosis with recent femur fracture. We will need to consider other options for osteoporosis management in the future if she indeed fractured her femur while on alendronate. 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 Limit alcohol and avoid Bactrim ? 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: Code(s): Z79.620 - half-way (current) use of immunosuppressive biologic Category: Medical Plan: #Long-term Use of TNF Inhibitors: Abatacept Discussed with the patient the benefits and risks of abatacept for the management of the rheumatic condition Benefits include reduce pain, maintenance of remission and reduction of flares as well as ?progression of the disease Risks include injection sites/infusion reactions, serious infections (such as bacterial infections, opportunistic infections), malignancy Recommended rotating injection sites, and holding medication during and for up to 1 week after resolution of a febrile illness or open skin wound Plan I spent 30 minutes reviewing the record and labs, taking a history, examining the patient, discussing the treatment plan and documenting in the medical record Orders: Orders Complete Blood Count Auto Diff Today M06.9 - Rheumatoid arthritis, unspecified T Spot TB Today M06.9 - Rheumatoid arthritis, unspecified Comprehensive Met. Panel Today M06.9 - Rheumatoid arthritis, unspecified C Reactive Protein Today M06.9 - Rheumatoid arthritis, unspecified Erythrocyte Sedimentation Rate Today M06.9 - Rheumatoid arthritis, unspecified Hepatitis A,B,C Profile Today M06.9 - Rheumatoid arthritis, unspecified Medications: New diclofenac sodium 1% (Aleve (diclofenac)) apply to bilateral hands 4 grams topical QID 100 grams 5RF M81.0 - Age-related osteoporosis without current pathological fracture Changed From pilocarpine HCl 5 mg PO TID PRN 30 tabs 2RF dry mouth or dry eyes To pilocarpine HCl 5 mg PO TID 30 tabs 5RF dry mouth or dry eyes From methotrexate sodium 10 mg (4 x 2.5 mg) PO QWEEK 40 tabs 0RF M06.9 - Rheumatoid arthritis, unspecified To methotrexate sodium 10 mg (4 x 2.5 mg) PO QWEEK 90 days 52 tabs 1RF M06.9 - Rheumatoid arthritis, unspecified Refilled Orencia ClickJect (abatacept) 125 mg subcut QWEEK 12 mL 5RF NS M06.9 - Rheumatoid arthritis, unspecified alendronate 70 mg PO QWEEK 12 tabs 1RF M81.0 - Age-related osteoporosis without current pathological fracture Coding Level of Care Code Est Pt Level 4 (38403) Complex EM visit Add On G2211 Diagnoses Rheumatoid arthritis involving multiple sites, unspecified whether rheumatoid factor present M06.9 Rheumatoid arthritis location: multiple sites Rheumatoid factor presence: unspecified presence Keratoconjunctivitis sicca M35.01 Other secondary osteoarthritis of both hands M19.241; M19.242 Osteoarthritis type: other secondary Age-related osteoporosis without current pathological fracture M81.0 Osteoporosis type: age-related Presence of current pathological fracture: without current pathological fracture 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
--- OUTSIDE RECORDS SUMMARY | 2024-10-15 14:17 | XMS_ITS | Encounter Summary ---
Author Organization [employer] Address [address] [place] [address] [address] [place] [address] Care Team Providers Care Synthetic Filament Spinner Name Role Phone Unavailable Primary Care Provider Unavailabl e Encounter Details Date Type Department Care Team (Latest Contact Info) Description 08/05/2020 [facility] CONVERSIONS Dental, Provider, DDS Social History Tobacco Use Types Packs/Day Years Used Date Smoking Tobacco: Never Assessed Comments Unknown Sex and Gender Information Value Date Recorded Sex Assigned at Female 09/01/2022 1:37 PM EST Legal Sex Female 5:35 PM EDT Gender Identity Female 09/01/2022 1:37 PM EST Sexual Orientation Choose not to disclose 2021 8:14 AM EST Sexual Orientation Straight 09/09/2022 8: 14 AM EST documented as of this encounter Plan of Treatment Not on file documented as of this encounter Visit Diagnoses Not on filedocumented in this encounter
--- OUTSIDE RECORDS SUMMARY | 2024-10-15 14:17 | XMS_ITS | Encounter Summary ---
Author Organization [employer] Address [address] [place] [address] [address] [place] [address] Care Team Providers Care Manager Restaurant Name Role Phone Unavailable Primary Care Provider Unavailabl e Encounter Details Date Type Department Care Team (Latest Contact Info) Description 02/26/2019 [facility] CONVERSION[facility] Dental, Provider, DDS Social [...]
--- OUTSIDE RECORDS SUMMARY | 2024-10-15 14:17 | XMS_ITS | Clinical Summary ---
Author Organization [facility] Address [address] [place] [address] Care Team Providers Care Banquet Manager Name Role Phone Brittanie Sahni MD Primary Care Provider [phone] Allergies Active Allergy Reactions Criticality Noted Date Comments Povidone-Iodine Itching Medium 10/24/2017 Medications Orencia 125 mg/mL injection SMARTSI Milliliter(s) SUB-Q Once a Week 08/05/2022 Active atenoloL (TENORMIN) 50 mg tablet Take 50 mg by mouth once a day. 05/25/2022 Active calcitrioL (ROCALTROL) 0.5 mcg capsule Take 0.5 mcg by mouth once a week. 08/05/2022 Active cevimeline (EVOXAC) 30 mg capsule Take 30 mg by mouth 3 times a day. 07/14/2022 Active folic acid (FOLVITE) 1 mg tablet Take 1,000 mcg by mouth once a day. 11/17/2021 Active cholecalciferol (VITAMIN D3) 2,000 unit capsule Take 10,000 Units by mouth 2 times daily. Active lidocaine (LIDODERM) 5% patch APPLY 1 PATCH TO THE AFFECTED AREA DAILY. LEAVE ON FOR 12 HOURS AND THEN OFF FOR 12 HOURS 05/17/2022 Active losartan (COZAAR) 25 mg tablet SMARTSI Tablet(s) By Mouth Every Evening 06/08/2022 Active MAGNESIUM GLYCINATE ORAL Take 400 mg by mouth 2 times daily. Active [id number] a-fish oil-D3 350 mg- 1,000 unit capsule Take 1,000 mg by mouth daily. Active methotrexate (TREXALL) 2.5 mg tablet Take 10 mg by mouth once a week. 08/03/2022 Active omeprazole (PriLOSEC) 20 mg capsule Take 20 mg by mouth 2 times a day. 07/14/2022 Active psyllium (KONSYL) powder Take by mouth. Active rosuvastatin (CRESTOR) 40 mg tablet Take 40 mg by mouth once a day. 06/06/2022 Active torsemide (DEMADEX) 10 mg tablet Take 10 mg by mouth once a day. 05/25/2022 Active venlafaxine (EFFEXOR) 75 mg tablet Take 75 mg by mouth once a day. 05/19/2022 Active aspirin 81 mg EC tablet Take 81 mg by mouth once a day. Active Active Problems Problem Noted Date Diagnosed Date Rheumatoid arthritis involvi ng multiple sites with positive rheumatoid factor (CMS/HCC) 08/20/2022 Family History Medical History Relation Name Comments No Known Problems Father No Known Problems Mother Relation Name Status Comments Father Mother Social History Tobacco Use Types Packs/Day Years Used Date Smoking Tobacco: Never Assessed Tobacco Cessation:Counseling Given: Not Answered Comments Unknown Sex and Gender Information Value Date Recorded Sex Assigned at Female 08/16/2022 11:26 AM EST Legal Sex Female 3:33 PM EDT Gender Identity Female 08/16/2022 11:26 AM EST Sexual Orientation Straight 08/16/2022 11 :26 AM EST Last Filed Vital Signs Vital Sign Reading Time Taken Comments Blood Pressure 117/74 08/19/2022 1:18 PM EST Pulse 78 08/19/2022 1:18 PM EST Temperature - - Respiratory Rate 16 08/19/2022 1:18 PM EST Oxygen Saturation 95% 08/19/2022 1:18 PM EST Inhaled Oxygen Concentration - - Weight 93.4 kg (206 lb) 08/19/2022 1:18 PM EST Height 162.6 cm (5' 4 ) 08/19/2022 1:18 PM EST Body Mass Index 35.36 08/19/2022 1:18 PM EST Plan of Treatment Health Maintenance Due Date Last Done Comments Hepatitis C Screening 1945 DTaP,Tdap,and Td Vaccines (1 - Tdap) 02/10/1968 Osteoporosis Screening 02/10/1996 Zoster Vaccines (1 of 2) 02/10/1996 Pneumococcal Vaccine: 65+ Years (1 of 1 - PCV) 2011 RSV Vaccine (60+ years old and patients) (1 - 1-dose 75+ series) 2021 COVID-19 Vaccine (3 - 2023-2 5 season) 2024 12/16/2020, 11/16/2020 Influenza Vaccine (#1) 2024 Alcohol/Substance Use Screening 09/11/2024 Depression Screening and Follow-Up 09/11/2024 Health Care Proxy Review 09/11/2024 Social Drivers of Health Annual Screening 09/11/2024 Hepatitis B Vaccines Aged Out No long er eligible based on patient's age to complete this topic Insurance MEDICARE [facility] Care Teams Banquet Manager Relationship Specialty Start Date End Date Brittanie Sahni MD [address] [address] PCP - General Internal Medicine 07/06/22
--- OUTSIDE RECORDS SUMMARY | 2024-10-15 14:17 | XMS_ITS | Encounter Summary ---
Author Organization [employer] Address [address] [place] [address] [address] [place] [address] Care Team Providers Care Child Nutrition Director Name Role Phone Unavailable Primary Care Provider Unavailabl e Encounter Details Date Type Department Care Team (Latest Contact Info) Description 02/10/2021 [facility] CONVERSION[facility] Dental, Provider, DDS Social [...]
[2024-10-15 14:18] VITALS: BP 112/74; PULSE 74; O2SAT 92; BMI 35.5
--- OUTSIDE RECORDS SUMMARY | 2024-10-15 14:18 | XMS_ITS | Encounter Summary ---
Author Organization [employer] Address [address] [place] [address] [address] [place] [address] Care Team Providers Care Cake Wrapper Name Role Phone Unavailable Primary Care Provider Unavailabl e Encounter Details Date Type Department Care Team (Latest Contact Info) Description 08/19/2021 [facility] CONVERSIONS Dental, Provider, DDS Social [...]
--- OUTSIDE RECORDS SUMMARY | 2024-10-15 14:18 | XMS_ITS | Continuity of Care Document ---
Author Organization [facility] Address [address] [place] [id number]- Care Team Providers Care Brim Presser Name Role Phone Brittanie Sahni MD Primary Care Physician Encounter [facility] Date(s): 08/21/24 - 09/20/[address] [id number] Attending Physician: Jairo Bautista Admitting Physician: Jairo Bautista Referring Physician: AdmJairo krishnamurthy Encounter Type: Triage Allergies, Adverse Reactions, Alerts Substance Criticality Severity Reaction Reaction Severity Status Betadine rash Active Immunizations Given and Recorded Vaccine Date Status Refusal Reason Influenza Virus Vaccine (oldterm) 1 06/16/08 Given 1Admin Note: info given, Medications acetaminophen 325 mg oral tablet 975 mg, By Mouth, Every 8 hours, Refills 0, Maintenance, 12/05/23 12:36:00 PM EDT, Partial fill uponpatient request if the prescription is for a schedule II opioid drug. Start Date: 12/05/23 Status: Ordered Repeat number: 1 alendronate 70 mg oral tablet 1 tablet = 70 mg, By Mouth, Every week, # 12 tablet, 0 Refills, Maintenance, 06/10/24 11:43:00 AM EDT, Tablet, Partial fill upon patient request if the prescription is for a schedule II opioid drug. Start Date: 06/10/24 Status: Ordered Quantity: 12.0 Unit: tablet Repeat number: 1 Amoxicillin 500 mg, By Mouth, Maintenance, 4 CAPSULE PRIOR TO DENTAL APPOINTMENT, 10/09/20 1:14:00 PM EST Start Date: 10/09/20 Status: Ordered Repeat number: 1 aspirin 325 mg oral tablet 325 mg, By Mouth, Daily, Refills 0, Maintenance, 12/05/23 12:36:00 PM EDT, Partial fill upon patientrequest if the prescription is for a schedule II opioid drug. Start Date: 12/05/23 Status: Ordered Repeat number: 1 atenolol 50 mg oral tablet 50 mg, 1, tablet, By Mouth, Daily, # 90 tablet, 3 Refills Start Date: 12/04/08 Stop Date: 11/29/09 Status: Ordered Quantity: 90.0 Unit: tablet Repeat number: 4 Biotene By Mouth, 2 times a day, 0 Refills, Maintenance, 03/23/22 11:38:00 AM EDT, Partial fill upon patientrequest if the prescription is for a schedule II opioid drug. Start Date: 03/23/22 Status: Ordered Repeat number: 1 calcitriol 0.5 mcg oral capsule 1 capsule = 0.5 mcg, By Mouth, Daily, ONCE A WEEK, 0 Refills, Maintenance, 10/09/20 1:16:00 PM EST, Partial fill upon patient request if the prescription is for a schedule II opioid drug. Start Date: 10/09/20 Status: Ordered Repeat number: 1 calcitriol 0.5 mcg oral capsule 1 capsule = 0.5 mcg, By Mouth, Daily, # 30 capsule, 0 Refills, Maintenance, 06/10/24 11:43:00 AM EDT, Capsule, Partial fill upon patient request if the prescription is for a schedule II opioid drug. Start Date: 06/10/24 Status: Ordered Quantity: 30.0 Unit: capsule Repeat number: 1 cevimeline 30 mg oral capsule 1 capsule = 30 mg, By Mouth, 3 times a day Start Date: 07/31/23 Status: Ordered Repeat number: 1 CPAP Machine AutoCPAP 5-10, Maintenance, [facility], 11/11/21 7:51:00 AM EST, Supply Start Date: 11/11/21 Status: Ordered Repeat number: 1 Crestor 20 mg oral tablet 1 tablet = 20 mg, By Mouth, Daily at bedtime, # 30 tablet, 0 Refills, Maintenance, 10/09/20 1:20:00 PM EST, Tablet, Partial fill upon patient request if the prescription is for a schedule II opioid drug. Start Date: 10/09/20 Status: Ordered Quantity: 30.0 Unit: tablet Repeat number: 1 docusate sodium 100 mg oral capsule 100 mg, 1, capsule, By Mouth, 2 times a day, Refills 0, Maintenance, 12/05/23 12:36:00 PM EDT, Partial fill upon patient request if the prescription is for a schedule II opioid drug. Start Date: 12/05/23 Status: Ordered Repeat number: 1 folic acid 1 mg oral tablet 1 tablet, By Mouth, Daily, # 30 tablet, 0 Refills, Maintenance, 05/31/11 9:36:46 AM EDT, Tablet Start Date: 05/31/11 Status: Ordered Quantity: 30.0 Unit: tablet Repeat number: 1 glucosamine 500 mg oral capsule See Instructions, 1 capsules By Mouth Daily, 0 Refills Start Date: 11/20/07 Status: Ordered Repeat number: 1 lidocaine 1.8% patch 1 PATCH, Topically, Daily, 0 Refills, Maintenance, 10/09/20 1:21:00 PM EST, Partial fill upon patient request if the prescription is for a schedule II opioid drug. Start Date: 10/09/20 Status: Ordered Repeat number: 1 losartan 25 mg oral tablet 1 tablet = 25 mg, By Mouth, Daily, # 30 tablet, 0 Refills, Maintenance, 03/23/22 11:38:00 AM EDT, Tablet, Partial fill upon patient request if the prescription is for a schedule II opioid drug. Start Date: 03/23/22 Status: Ordered Quantity: 30.0 Unit: tablet Repeat number: 1 losartan 50 mg oral tablet 50 mg, 1, tablet, By Mouth, Daily in AM, # 30 tablet, Refills 0, Maintenance, 12/01/23 6:37:00 PM EDT, Partial fill upon patient request if the prescription is for a schedule II opioid drug. Start Date: 12/01/23 Status: Ordered Quantity: 30.0 Unit: tablet Repeat number: 1 Magic Mouthwash- Magic Mouthwash-, SWISH AND SPIT 15 MILLILITERS BY MOUTH THREE TO FOUR TIMES A DAY ... (REFER TO PRESCRIPTION NOTES). Start Date: 07/31/23 Status: Ordered Repeat number: 1 magnesium glycinate = 400 mg, By Mouth, 3 times a day, 0 Refills, Maintenance, 10/09/20 1:11:00 PM EST, Partial fill upon patient request if the prescription is for a schedule II opioid drug. Start Date: 10/09/20 Status: Ordered Repeat number: 1 Methotrexate = 2.5 mg, 4 TABLETS ONCE A WEEK/MONDAY, 0 Refills, Maintenance, 10/09/20 1:12:00 PM EST, Partial fill upon patient request if the prescription is for a schedule II opioid drug. Start Date: 10/09/20 Status: Ordered Repeat number: 1 Misc Rx BERBERINE 500 AND 250 MG, Refills 0, Maintenance, 03/23/22 11:37:00 AM EDT, Supply Start Date: 03/23/22 Status: Ordered Repeat number: 1 multivitamin Multiple Vitamins oral tablet 1, tablet, By Mouth, Daily, 0 Refills Start Date: 11/20/07 Status: Ordered Repeat number: 1 Orencia ClickJect 125 mg/mL subcutaneous solution 0 Refills, Maintenance, 06/10/24 11:43:00 AM EDT, Partial fill upon patient request if the prescription is for a schedule II opioid drug. Start Date: 06/10/24 Status: Ordered Repeat number: 1 pilocarpine 5 mg oral tablet take 1 tablet by mouth three times a day Start Date: 04/03/23 Status: Ordered Repeat number: 1 Prilosec 20 mg oral enteric coated capsule 20 mg, 1, capsule, By Mouth, Daily, 0 Refills Start Date: 11/20/07 Status: Ordered Repeat number: 1 Psyllium Powder By Mouth, Refills 0, Maintenance, 03/23/22 11:38:00 AM EDT, Partial fill upon patient request if theprescription is for a schedule II opioid drug. Start Date: 03/23/22 Status: Ordered Repeat number: 1 torsemide 10 mg oral tablet See Instructions, take 1 extra tablet daily x 5 days, # 5 tablet, 0 Refills, Maintenance, 02/27/23 11:42:00 AM EDT, [id number], Partial fill upon patient request if the prescription is for a schedule II opioid drug., 162.56, cm, 02/27/23 11:25:00 EDT, Height Start Date: 02/27/23 Status: Ordered Quantity: 5.0 Unit: tablet Repeat number: 1 torsemide 10 mg oral tablet 1 tablet = 10 mg, By Mouth, Daily, # 30 tablet, 0 Refills, Maintenance, 08/13/19 4:22:11 PM EST, Tablet Start Date: 08/13/19 Status: Ordered Quantity: 30.0 Unit: tablet Repeat number: 1 venlafaxine 75 mg oral tablet 1 tablet = 75 mg, By Mouth, Daily in AM, 0 Refills, Maintenance, 01/03/13 2:40:18 PM EDT Start Date: 01/03/13 Status: Ordered Repeat number: 1 Vitamin C 100 mg oral tablet 100 mg, 1, tablet, By Mouth, Daily, 0 Refills Start Date: 11/20/07 Status: Ordered Repeat number: 1 Vitamin D3 1000 intl units oral tablet 1 tablet = 1,000 International_Units, By Mouth, 2 times a day, 0 Refills, Maintenance, 05/31/11 9:38:09 AM EDT Start Date: 05/31/11 Status: Ordered Repeat number: 1 Problem List Condition Confirmation Course Effective Dates Status H ealth Status Informant DJD (degenerative joint disease) Confirmed Active Dysphagia Confirmed Active Edema Confirmed Active High density lipoprotein cholesterol level Confirmed Active S/P MVR (mitral valve repair) Confirmed Active HT - Hypertension Confirmed Active Mitral regurgitation Confirmed Active Mitral Valve Disorders Confirmed 01/03/13 Active Nulliparous Confirmed Active Obese class I Confirmed Active Obstructive sleep apnea hypopnea, moderate Confirmed Active Osteopenia 1 Confirmed Active Sjogren's syndrome Confirmed Active 1of spine not hips T score -1.5 2008 Social History Social History Type Response Smoking Status Never smoker; Tobacc o user in household: No entered on: 11/08/13 Sex Sex Representation Female (finding) Patient Care team information Care Team Personnel Name: Brittanie Sahni MD Position: [facility] Physician - Primary Care Member Role: PCP Address: [address] [place] [address] Telecom: Name: Cris Best RN Position: [facility] RN Member Role: Primary Care Nurse Name: Ethel Olmedo RN Position: [facility] RN Member Role: Primary Care Nurse Care Team Related Persons Name: JESIKA LESTER Insurance Providers Guarantor name: FELICITY LESTER Health Plan Information #: 1 Payer: MEDICARE PART B OUTPT Member Number: NA Policy Number: NA Group Number: NA Health Plan Information #: 2 Payer: [place] Member Number: NA Policy Number: NA Group Number: NA
--- OUTSIDE RECORDS SUMMARY | 2024-10-15 14:18 | XMS_ITS | Clinical Summary ---
Author Organization [facility] Address [facility] [place] [address] Care Team Providers Care Supervisor Lens Generating Name Role Phone Brittanie Sahni MD Primary Care Provider [phone] Allergies Active Allergy Reactions Criticality Noted Date Comments Povidone-Iodine Itching 08/22/2022 Medications Medication Sig Dispensed Refills Start Date End Date Status GLUCOSAMINE SULFATE ORAL Take 1,550 mg by mouth Daily. Active torsemide (Demadex) 10 mg Tablet Take 10 mg by mouth. 05/25/2022 Active rosuvastatin (Crestor) 40 mg Tablet Take 40 mg by mouth. 06/06/2022 Active Psyllium Powder Take by mouth. Activ e omeprazole (PriLOSEC) 20 mg Capsule, Delayed Release(E.C.) Take 20 mg by mouth. 07/14/2022 Active metHOTREXate 2.5 mg Tablet take 4 tablets by mouth EVERY MONDAY DIRECTED 08/03/2022 Active losartan (Cozaar) 25 mg Tablet Take 25 mg by mouth every evening. 06/08/2022 Active lidocaine (Lidoderm) 5% Adhesive Patch, Medicated APPLY 1 PATCH TO THE AFFECTED AREA DAILY. LEAVE ON FOR 12 HOURS AND THEN OFF FOR 12 HOURS 06/12/2019 Active abatacept (Orencia) 125 mg/mL Syringe SMARTSI Milliliter(s) SUB-Q Once a Week 08/05/2022 Active MAGNESIUM GLYCINATE ORAL Take 400 mg by mouth Twice daily. Active amoxicillin (Amoxil) 500 mg Capsule take 4 capsules by mouth before DENTAL PROCEDURE 02/17/2018 Active ascorbic acid, Vitamin C, (Vitamin C) 500 mg Tablet Take 500 mg by mouth Three times a day. Active aspirin EC 81 mg Tablet, Delayed Release (E.C.) Take 81 mg by mouth. Active atenoloL (Tenormin) 50 mg Tablet Take 50 mg by mouth. 05/25/2022 Active calciTRIoL (Rocaltrol) 0.5 mcg Capsule Take 0.5 mcg by mouth once a week. 08/05/2022 Active cevimeline (EVOXAC) 30 mg Capsule Take 30 mg by mouth. 07/14/2022 Active multivitamin (THERAGRAN) Tablet Take 1 tablet by mouth Daily. Active [id number]-epa-fish oil-D3 350 mg- 1,000 unit Capsule Take 1,000 mg by mouth daily. Active folic acid (Folvite) 1 mg Tablet Take 1,000 mcg by mouth. 11/17/2021 Active venlafaxine (EFFEXOR) 75 mg Tablet Take 75 mg by mouth daily. Active Active Problems No known active problems Social History Tobacco Use Types Packs/Day Years Used Date Smoking Tobacco: Never Assessed Sex and Gender Information Value Date Recorded Sex Assigned at Not on file Gender Identity Not on file Sexual Orientation Not on file Last Filed Vital Signs Vital Sign Reading Time Taken Comments Blood Pressure 130/80 08/22/2022 1:36 PM EST Pulse 69 08/22/2022 1:36 PM EST Temperature - - Respiratory Rate - - Oxygen Saturation - - Inhaled Oxygen Concentration - - Weight 89.8 kg (198 lb) 08/22/2022 1:36 PM EST Height - - Body Mass Index - - Plan of Treatment Health Maintenance Due Date Last Done Comments Hepatitis C Screening 02/10/1963 Tetanus/Diphtheria/Pertussis Vaccines (1 - Tdap) 1965 Pneumoccocal Vaccine: 50+ (1 of 1 - PCV) 02/10/1996 Zoster vaccine (1 of 2) 02/10/1996 Advance Directive 2001 Bone Density Scan 2011 RSV Vaccine (1 - 1-dose 75+ series) 2021 Covid-19 Vaccine ( season) 05/12/202403/2021, 11/16/2020 Influenza (Flu) vaccine (1 o f 1 - Influenza standard series) 05/12/2024 Advance Directives Documents on File Type Date Recorded Patient Product Safety Consultant Expl anation Personal Product Safety Consultant 08/24/2022 2:24 PM Care Teams Supervisor Lens Generating Relationship Specialty Start Date End Date Brittanie Sahni MD [address] [place] [id number] PCP - General Internal Medicine 08/22/22
--- OUTSIDE RECORDS SUMMARY | 2024-10-15 14:18 | XMS_ITS | Clinical Summary ---
Author Organization [employer] Address [address] [place] [address] [address] [place] [address] Care Team Providers Care Compliance Program Manager Name Role Phone Unavailable Primary Care Provider Unavailabl e Allergies Active Allergy Reactions Criticality Noted Date Comments Povidone-Iodine Itching Medium 10/24/2017 Medications abatacept (Orencia) 125 MG/ML injection SMARTSI Milliliter(s) SUB-Q Once a Week 2 Active ascorbic acid (Vitamin C) 500 MG tablet Take 500 mg by mouth in the morning and 500 mg at noon and 500 mg in the evening. Active aspirin 81 MG EC tablet Take 81 mg by mouth. Active atenolol (Tenormin) 50 MG tablet Take 50 mg by mouth in the morning. 2 Active calcitriol (Rocaltrol) 0.5 MCG capsule Take 0.5 mcg by mouth. 2 Active cevimeline (Evoxac) 30 MG capsule Take 30 mg by mouth. 2 Active cholecalciferol (Vitamin D-3) 50 MCG (2000 UT) capsule Take 10,000 Units by mouth. Active folic acid (Folvite) 1 MG tablet Take 1,000 mcg by mouth. 2 Active lidocaine (Lidoderm) 5 % patch APPLY 1 PATCH TO THE AFFECTED AREA DAILY. LEAVE ON FOR 12 HOURS AND THEN OFF FOR 12 HOURS 9 Active losartan (Cozaar) 25 MG tablet SMARTSI Tablet(s) By Mouth Every Evening 1 Active lisinopril 20 MG tablet Take 20 mg by mouth in the morning. Active methotrexate 2.5 MG tablet Take 10 mg by mouth. 2 Active Multiple Vitamins-Minera ls (Oncovite) tablet Take 1 tablet by mouth in the morning. Active rosuvastatin (Crestor) 20 MG tablet Take 20 mg by mouth in the morning. 0 Active torsemide (Demadex) 10 MG tablet Take 10 mg by mouth in the morning. 2 Active venlafaxine (Effexor) 75 MG tablet Take 75 mg by mouth in the morning. 2 Active lidocaine (Xylocaine) 2 % solution SWISH AND SPIT 15MLS BY MOUTH THREE TO FOUR TIMES A DAY DIRECTED, DON'T SWALLOW 600 mL 2 4 Active amoxicillin (Amoxil) 500 MG capsule take 4 capsules by mouth AT ONCE 1 HOUR PRIOR TO DENTAL PROCEDURE 12 capsule 3 3 Active amoxicillin (Amoxil) 500 MG capsule take 4 capsules by mouth A ONE TIME DOSE 1 hour prior to dental appointment 4 capsule 2 4 Active Active Problems Problem Noted Date Diagnosed Date History of total right hip replacement 8 Overview (09/08/2022): Right total hip arthroplasty on January 03, [address] Sang Quintanilla. Last Assessment & Plan: 1 year status post right total hip replacement and doing well with that. Social History Tobacco Use Types Packs/Day Years Used Date Smoking Tobacco: Never Assessed Comments Unknown Sex and Gender Information Value Date Recorded Sex Assigned at Female 09/01/2022 1:37 PM EST Legal Sex Female 5:35 PM EDT Gender Identity Female 09/01/2022 1:37 PM EST Sexual Orientation Choose not to disclose 2021 8:14 AM EST Sexual Orientation Straight 09/09/2022 8: 14 AM EST Last Filed Vital Signs Vital Sign Reading Time Taken Comments Blood Pressure - - Pulse - - Temperature 36.5 ??C (97.7 ??F) 12/01/2022 10:15 AM E DT Respiratory Rate - - Oxygen Saturation - - Inhaled Oxygen Concentration - - Weight - - Height - - Body Mass Index - - Plan of Treatment Health Maintenance Due Date Last Done Comments Depression Screening 1946 Lipid Panel 1946 SDOH Screening 1946 Alcohol/Substance Use Screening 1958 Tobacco Screening 1958 Hepatitis C Screening 02/10/1964 DTaP/Tdap/Td Vaccines (1 - Tdap) 1965 Pneumococcal Vaccine: 50+ Years (1 of 1 - PCV) 02/10/1996 Zoster Vaccines (1 of 2) 02/10/1996 RSV Patients and Patients Aged 60 years or older (1 - 1-dose 75+ series) 2021 COVID-19 Vaccine (3 - season) 2024 12/16/2020, 11/16/2020 Influenza Vaccine (#1) 2024 06/08/2018 Dental Oral Exam 05/24/2024 11/21/2023, , 09/08/2022, Additional history exists Dental Prophylaxis 05/24/2024 11/21/2023, 0 04/04/2023, 09/08/2022, Additional history exists Dental X-Ray: Bitewings 11/21/2024 11/21/19 24, 09/08/2022, 02/10/2021, Additional history exists Dental X-Ray: Full Mouth 11/21/2026 11/21/2023, 08/12 HIB Vaccines Aged Out No longer eligi ble based on patient's age to complete this topic HPV Vaccines Aged Out No longer eligi ble based on patient's age to complete this topic Hepatitis A Vaccines Aged Out No long er eligible based on patient's age to complete this topic Hepatitis B Vaccines Aged Out No long er eligible based on patient's age to complete this topic IPV Vaccines Aged Out No longer eligi ble based on patient's age to complete this topic Meningococcal Vaccine Aged Out No angy hilario eligible based on patient's age to complete this topic RSV under 20 months Aged Out No longe r eligible based on patient's age to complete this topic Rotavirus Vaccines Aged Out No longer eligible based on patient's age to complete this topic Procedures Procedure Name Priority Date/Time Associated Diagnosis Comments Full PROPHYLAXIS - ADULT Routine 024 12:00 PM EDT DIAGNOSTIC - DIAGNOSTIC IMAGING - INTRAORAL - COMPREHENSIVE SERIES OF RADIOGRAPHIC IMAGES Routine 11/21/2023 12:00 PM EDT PERIODIC ORAL EVALUATION - ESTABLISHED PATIENT Routine 11/21/2023 12:00 PM EDT from Last 3 Months or Most Recently Relevant to Health Maintenance Insurance
--- OUTSIDE RECORDS SUMMARY | 2024-10-15 14:18 | XMS_ITS | Encounter Summary ---
Author Organization [employer] Address [address] [place] [address] [address] [place] [address] Care Team Providers Care Reagent Tender Helper Name Role Phone Unavailable Primary Care Provider Unavailabl e Reason for Visit * Reason Comments Med Refill Encounter Details Date Type Department Care Team ([facility] Contact Info) Description 05/28/2024 Refill [place] [facility] DENTAL [address] [place] [address] Pari Forte DDS [address] [place] [address] Social History Tobacco Use Types Packs/Day Years [...] AM EST documented as of this encounter Miscellaneous Notes * Telephone Encounter - Pari Forte DDS - 05/30/2024 8:06 AM EDT Refill Amox for premed. ARR documented in this encounter Plan of Treatment Not on file documented as of this encounter Visit Diagnoses Not on filedocumented in this encounter
--- OUTSIDE RECORDS SUMMARY | 2024-10-15 14:18 | XMS_ITS | Referral Summary ---
Author Organization [facility] Address [address] [place] [address] Care Team Providers Care Flooring Grader Name Role Phone Brittanie Sahni MD Primary Care Provider [phone] Allergies Active Allergy Reactions Criticality Noted Date [...] mg by mouth 2 times daily. 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
--- OUTSIDE RECORDS SUMMARY | 2024-10-15 14:18 | XMS_ITS | Encounter Summary ---
Author Organization [employer] Address [address] [facility] [address] [place] [address] Care Team Providers Care Sort Manager Name Role Phone Unavailable Primary Care Provider Unavailabl e Encounter Details Date Type Department Care Team (Late st Contact Info) Description 10/27/2023 Orders Only [place] [facility] D[facility]AL [address] [place] [address] Piedad Maria LLD [address] [place] [address] Social History Tobacco Use Types Packs/Day Years [...]
--- OUTSIDE RECORDS SUMMARY | 2024-10-15 14:18 | XMS_ITS | Encounter Summary ---
Author Organization [employer] Address [address] [place] [address] [address] [place] [address] Care Team Providers Care Green Chain Operator Name Role Phone Unavailable Primary Care Provider Unavailabl e Reason for Visit * Reason Comments Med Refill Encounter Details Date Type Department Care Team ([facility] Contact Info) Description 02/15/2023 Refill [place] [facility] D[facility] [address] [place] [address] Pari Forte DDS [address] [place], [place] [id number] Social History Tobacco Use Types Packs/Day Years [...] Telephone Encounter - Pari Forte DDS - 02/20/2023 9:06 AM EDT Refilled Magic Mouthrinse (possibly duplicate order). I attempted to put in order last week. ARR documented in this encounter Plan of Treatment Not on file documented as of this encounter Visit Diagnoses Not on filedocumented in this encounter
== END 2024-10-15 15:13 | disposition home or self-care (01) ==
LOC: HO.RHE 14:10
PROVIDERS: PCP Internal Medicine; Visit Provider Student in an Organized Health Care Education/Training Program
DX: M06.9 Rheumatoid arthritis, unspecified (principal); M35.01 Sjogren syndrome with keratoconjunctivitis; M19.241 Secondary osteoarthritis, right hand; M19.242 Secondary osteoarthritis, left hand; M81.0 Age-related osteoporosis without current pathological fracture; Z79.631 Long term (current) use of antimetabolite agent; Z79.620 Long term (current) use of immunosuppressive biologic
CPT/HCPCS: 99214; G2211

== ENCOUNTER → 2024-10-15 14:10 | Outpatient (BNVA) | payer MEDICARE, MEDICAID, SELFPAY | PROVIDERS: PCP Internal Medicine; Visit Provider Student in an Organized Health Care Education/Training Program | DX: M06.9 Rheumatoid arthritis, unspecified (principal); M81.0 Age-related osteoporosis without current pathological fracture; M19.241 Secondary osteoarthritis, right hand; M19.242 Secondary osteoarthritis, left hand; Z79.631 Long term (current) use of antimetabolite agent; Z79.620 Long term (current) use of immunosuppressive biologic | CPT/HCPCS: 99212 ==

== ENCOUNTER 2025-02-13 13:02 | Outpatient (AMB) | payer MEDICARE, MEDICAID, SELFPAY ==
[2025-02-13 13:11] VITALS: BP 130/74; PULSE 69; O2SAT 94; BMI 35.2
--- NOTE | 2025-02-13 13:11 | A.OFFVIS_ITS ---
Vital Signs 02/13/25 13:11 Height 5 ft 4 in Weight 205 lb 4.006 oz BMI 35.2 BP 130/74 Blood Pressure Location Lt brachial Position Sitting Pulse 69 Pulse Source Pulse Oximeter Pulse Oximetry (%) 94 Oxygen Delivery Method Room Air Intake Visit Reasons: RA Intake Note: Patient presents for follow up on RA today. Allergies betadyne Allergy (Mild, Uncoded 02/13/25 13:14) Itchy Medication List - Last Reconciled 02/13/25 by Julia Goodman MD acetaminophen (Tylenol Extra Strength) 500 mg PO TID alendronate 70 mg PO QWEEK amoxicillin 500 mg PO BID atenolol 50 mg PO DAILY calcitriol 0.5 mcg PO QWEEK cevimeline 1 cap PO TID 30 days cholecalciferol (vitamin D3) 25 mcg PO DAILY diclofenac sodium 1% (Aleve (diclofenac)) 4 grams topical QID folic acid 1 mg PO DAILY losartan 25 mg PO BEDTIME magnesium 400 mg PO DAILY methotrexate sodium 10 mg (4 x 2.5 mg) PO QWEEK 90 days multivitamin 1 tab PO DAILY omega-3 fatty acids 1,000 mg PO DAILY omeprazole 20 mg PO BID Orencia ClickJect (abatacept) 125 mg subcut QWEEK NS rosuvastatin 40 mg PO DAILY saliva substitute combo no.9 (Biotene Dry Mouth Oral Rinse mouthwash) 15 mL mucous membrane TID-QID PRN torsemide 10 mg PO DAILY HPI Comments Details: Patient is a 79-year-old female with hypertension complicated by peripheral vascular disease, hyperlipidemia, osteoporosis, Sjogren's syndrome with keratoconjunctivitis, rheumatoid arthritis unspecified whether or not it seropositive or seronegative here today for follow up Interval History: Patient last seen 10/15/2024 with me. At that time she was complaining of worsening pain in her hands especially involving her index finger on the right. Denies prolonged morning stiffness. Also complaining of numbness and tingling in the hands and is status post EMG which showed likely cubital tunnel syndrome for which she is following up with Neurology for. 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 Diagnosed around 2011 Unsure of any of her previous DMARDs but came to us on methotrexate and Orencia for more than 5 years and that has controlled her RA Also presented with sicca symptoms, SSA and SSB negative. Initially on cevimeline with improvement in her symptoms however this was changed to pilocarpine 07/2024 due to insurance issues Initial history: This is a 77-year-old female with a history of anxiety, obstr uctive sleep apnea, hypertension, fibromyalgia, dyslipidemia who presents for rheumatoid arthritis. Patient was diagnosed with rheumatoid arthritis more than [address] Garrett. She is not aware of her previous DMARDs but she had been on the combination p.o. methotrexate and weekly Orencia for more than 5 years with apparent good control of her RA. Patient states that her RA is cur rently well controlled. Her main complaint is left foot pain. 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 Osteoarthritis of hands, bilateral Transient global amnesia Chronic ankle pain Edema, lower extremity Fibromyalgia Spinal stenosis of lumbar region Rheumatoid arthritis GERD (gastroesophageal reflux disease) Chronic diastolic heart failure Essential hypertension Autonomic neuropathy GRACIELA (obstructive sleep apnea) Depression Obesity Mixed hyperlipidemia Surgical History S/P shoulder joint replacement History of cataract surgery History of right hip replacement History of left hip replacement S/P right rotator cuff repair History of left knee replacement History of total right knee replacement H/O right wrist surgery S/P insertion of spinal cord stimulator Hx of colonoscopy H/O arthroscopy of shoulder History of back surgery Hx of appendectomy History of mitral valve repair Family History Father Prostate cancer Mother Colon cancer Social History Household Members: Spouse Housing: House Alcohol intake: current Alcohol intake frequency: holidays/special occasions only Alcohol type: wine Patient Tobacco Use Status: Never used Tobacco e-Cigarette/Vaping Use: Never Used service: No Current occupational status: retired 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 Review of Systems Const Details: Review of Systems Constitutional: Denies fever, chills, weight loss ENT: Denies vision changes, eye pain or eye redness, dental caries, dry mouth GI: Denies nausea, vomiting, diarrhea, abdominal pain, change in BM Pulm: Denies SOB, SPRAGUE, hemoptysis, wheezing Cards: Denies chest pain, palpitations Skin: Denies Raynaud's, rash, nail changes, photosensitivity, 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 Well appearing and in no apparent painful distress HEENT Conjunctiva and sclera clear. ?Pupils equal round and reactive to light. ?No lymphadenopathy. ? CHEST/RESPIRATORY SYSTEM Normal respiratory effort and able to speak in complete sentences. ?Clear to auscultation bilaterally. ?No crackles, rales, rhonchi, wheezes heard. CARDIAC SYSTEM Regular rate and rhythm. ?S1 and S2 heard no murmurs. ?Radial pulses intact bilaterally MSK Hands: ?Good rn radiation strength bilaterally. Significant Heberden's and Eva's nodes with deformities however there is no tenderness to palpation and no evidence of synovitis. Second and 3rd MCPs of bilateral hands with synovial hypertrophy. No tenderness to palpation. Wrists: ?Full range of motion to the right wrist without any synovial hypertrophy left wrist with synovial hypertrophy but no tenderness to palpation. Surgical scar seen over the anterior of the forearm which is the location of her previous ulnar shortening surgery. Elbows: Full range of motion without pain. No tenderness, weakness, swelling, increased warmth or erythema. Shoulders: Full range of motion without pain. No tenderness, weakness, swelling, increased warmth or erythema. Knees: ?Full range of motion. ?No tenderness, swelling, increased warmth or erythema.? Bilateral crepitations no effusion felt. Ankles: Mild pitting edema to bilateral ankles noted. Left ankle with brace. Feet: ?Negative squeeze test. ?No tenderness to palpation or swelling of the MTPs SKIN Skin intact without rashes. Results Reviewed Results Reviewed: [facility] Labs 02/06/25 WBC 9.38 hemoglobin 13.6 platelets 235 ESR 8.0 CRP 3.7 Creatinine 1.0 EGFR 57.7 AST/ALT Hepatitis panel and QuantiFERON panel negative Assessment & Plan Assessment & Plan (1) Rheumatoid arthritis: Comment: Per notes it states that it is seropositive Labs in 10/03 showed negative RF negative CCP Code(s): M06.9 - Rheumatoid arthritis, unspecified Category: Medical Qualifiers: Rheumatoid arthritis location: multiple sites Rheumatoid factor presence: unspecified presence Qualified Code(s): M06.9 - Rheumatoid arthritis, unspecified Plan: #Seronegative erosive RA Patient is a 79-year-old female with longstanding history of seronegative erosive rheumatoid arthritis. Her disease currently is in remission and her pain is likely due to her significant osteoarthritis We will continue her medications as prescribed no changes made today Plan - Methotrexate 10mg PO weekly - Folic acid 1mg Po daily - Orencia 125mg weekly SC - RTC 6 months - Labs before next visit: CBC, CMP, ESR, CRP (2) Keratoconjunctivitis sicca: Code(s): M35.01 - Sjogren syndrome with keratoconjunctivitis Category: Medical Plan: #Sjogrens syndrome Patient recently switched from cevimeline took pilocarpine due to insurance: The prior no longer being on formulary. We will need to monitor for any worsening of her dry mouth. She does note that she particularly has problems with dry mouth overnight when she uses her CPAP. She has tried humidifiers, even lozenges to help stimulate saliva production but this still continues to be an issue. At this time I have no further suggestions or recommendations. We will continue to monitor Plan - Pilocarpine 5mg tid - Biotene mouthwash 15mL daily (3) Osteoarthritis of hands, bilateral: Code(s): M19.041 - Primary osteoarthritis, right hand; M19.042 - Primary osteoarthritis, left hand Category: Medical Qualifiers: Osteoarthritis type: other secondary Qualified Code(s): M19.241 - Secondary osteoarthritis, right hand; M19.242 - Secondary osteoarthritis, left hand Plan: #Bilateral hand OA Patient with significant bilateral hand OA likely on a background of her rheumatoid arthritis. I think that her pain currently is from her osteoarthritis than from her rheumatoid arthritis. Recommended topical diclofenac 4 times a day as well as copper gloves. Wrist splinting for finger numbness Plan - Topical diclofenac 1% qid - Copper arthritis gloves (4) Osteoporosis: Comment: DEXA 01/2023 Right total forearm T-score -3.7 Right 1/3 forearm T-score -4.3 Right UD forearm T-score -1.9 Bilateral hip replacements. Right shoulder replacement Alendronate 01/2024 Code(s): M81.0 - Age-related osteoporosis without current pathological fracture Category: Medical Qualifiers: Osteoporosis type: age-related Presence of current pathological fractur e: without current pathological fracture Qualified Code(s): M81.0 - Age-related osteoporosis without current pathological fracture Plan: #Osteoporosis with femur fracture Patient with osteoporosis with recent femur fracture. We will need to consider other options for osteoporosis management in the future if she indeed fractured her femur while on alendronate. 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 Limit alcohol and avoid Bactrim ? 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 Category: Medical Plan: #Long-term Use of TNF Inhibitors: Abatacept Discussed with the patient the benefits and risks of abatacept for the manageme nt of the rheumatic condition Benefits include reduce pain, maintenance of remission and reduction of flares as well as ?progression of the disease Risks include injection sites/infusion reactions, serious infections (such as bacterial infections, opportunistic infections), malignancy Recommended rotating injection sites, and holding medication during and for up to 1 week after resolution of a febrile illness or open skin wound Plan I spent 30 minutes reviewing the record and labs, taking a history, examining the patient, discussing the treatment plan and documenting in the medical record Orders: Orders Complete Blood Count Auto Diff 6 Months M06.9 - Rheumatoid arthritis, unspecified Comprehensive Met. Panel 6 Months M06.9 - Rheumatoid arthritis, unspecified C Reactive Protein 6 Months M06.9 - Rheumatoid arthritis, unspecified Erythrocyte Sedimentation Rate 6 Months M06.9 - Rheumatoid arthritis, unspecified Coding Level of Care Code Est Pt Level 4 (93759) Complex EM visit Add On G2211 Diagnoses Rheumatoid arthritis involving multiple sites, unspecified whether rheumatoid factor present M06.9 Rheumatoid arthritis location: multiple sites Rheumatoid factor presence: unspecified presence Keratoconjunctivitis sicca M35.01 Other secondary osteoarthritis of both hands M19.241; M19.242 Osteoarthritis type: other secondary Age-related osteoporosis without current pathological fracture M81.0 Osteoporosis type: age-related Presence of current pathological fracture: without current pathological fracture Methotrexate, jail, current use Z79.631 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
--- OUTSIDE RECORDS SUMMARY | 2025-02-13 15:10 | XMS_ITS | Encounter Summary ---
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
== END 2025-02-13 13:49 | disposition home or self-care (01) ==
LOC: HO.RHE 13:03
PROVIDERS: PCP Internal Medicine; Visit Provider Student in an Organized Health Care Education/Training Program
DX: M06.9 Rheumatoid arthritis, unspecified (principal); M35.01 Sjogren syndrome with keratoconjunctivitis; M19.241 Secondary osteoarthritis, right hand; M19.242 Secondary osteoarthritis, left hand; M81.0 Age-related osteoporosis without current pathological fracture; Z79.631 Long term (current) use of antimetabolite agent; Z79.620 Long term (current) use of immunosuppressive biologic
CPT/HCPCS: 99214; G2211

== ENCOUNTER → 2025-02-13 13:02 | Outpatient (BNVA) | payer MEDICARE, MEDICAID, SELFPAY | PROVIDERS: PCP Internal Medicine; Visit Provider Student in an Organized Health Care Education/Training Program | DX: M06.9 Rheumatoid arthritis, unspecified (principal); M81.0 Age-related osteoporosis without current pathological fracture; M35.01 Sjogren syndrome with keratoconjunctivitis; M19.241 Secondary osteoarthritis, right hand; M19.242 Secondary osteoarthritis, left hand; Z79.631 Long term (current) use of antimetabolite agent; Z79.620 Long term (current) use of immunosuppressive biologic | CPT/HCPCS: 99212 ==

== ENCOUNTER 2025-08-22 12:56 | Outpatient (AMB) | payer MEDICARE, MEDICAID, SELFPAY ==
--- OUTSIDE RECORDS SUMMARY | 2025-08-20 23:59 | XMS_ITS | Continuity of Care Document ---
Author Organization [facility] Address [address] [place] [address]- Care Team Providers Care Painter And Decorator Name Role Phone Brittanie Sahni MD Primary Care Physician [phone] Encounter [facility] Date(s): 07/21/25 - 08/20/25 [facility] [place] [address] [place] [address]- Attending Physician: Jairo Bautista Admitting Physician: Jairo Bautista Referring Physician: AdmtrJairo Encounter Type: Triage Allergies, Adverse Reactions, Alerts [...] opioid drug. Start Date: 12/05/23 Status: Ordered Medication Dispense Status: Completed Total Allowed Fills: 1 Fills Dispensed: 0 alendronate 70 mg oral tablet 1 tablet = 70 mg, By Mouth, Every week, # 12 tablet, 0 Refills, Maintenance, 06/10/24 11:43:00 AM EDT, Tablet, Partial fill upon patient request if the prescription is for a schedule II opioid drug. Start Date: 06/10/24 Status: Ordered Medication Dispense Status: Completed Quantity: 12.0 Unit: tablet Total Allowed Fills: 1 Fills Dispensed: 0 Amoxicillin 500 mg, By Mouth, Maintenance, 4 CAPSULE PRIOR TO DENTAL APPOINTMENT, 10/09/20 1:14:00 PM EST Start Date: 10/09/20 Status: Ordered Medication Dispense Status: Completed Total Allowed Fills: 1 Fills Dispensed: 0 aspirin 325 mg oral tablet 325 mg, By Mouth, Daily, Refills 0, Maintenance, 12/05/23 12:36:00 PM EDT, Partial fill upon patientrequest if the prescription is for a schedule II opioid drug. Start Date: 12/05/23 Status: Ordered Medication Dispense Status: Completed Total Allowed Fills: 1 Fills Dispensed: 0 atenolol 50 mg oral tablet 50 mg, 1, tablet, By Mouth, Daily, # 90 tablet, 3 Refills Start Date: 12/04/08 Stop Date: 11/29/09 Status: Ordered Medication Dispense Status: Completed Quantity: 90.0 Unit: tablet Total Allowed Fills: 4 Fills Dispensed: 0 Biotene By Mouth, 2 times a day, 0 Refills, Maintenance, 03/23/22 11:38:00 AM EDT, Partial fill upon patientrequest if the prescription is for a schedule II opioid drug. Start Date: 03/23/22 Status: Ordered Medication Dispense Status: Completed Total Allowed Fills: 1 Fills Dispensed: 0 calcitriol 0.5 mcg oral capsule 1 capsule = 0.5 mcg, By Mouth, Daily, # 30 capsule, 0 Refills, Maintenance, 06/10/24 11:43:00 AM EDT, Capsule, Partial fill upon patient request if the prescription is for a schedule II opioid drug. Start Date: 06/10/24 Status: Ordered Medication Dispense Status: Completed Quantity: 30.0 Unit: capsule Total Allowed Fills: 1 Fills Dispensed: 0 cevimeline 30 mg oral capsule 1 capsule = 30 mg, By Mouth, 3 times a day Start Date: 07/31/23 Status: Ordered Medication Dispense Status: Completed Total Allowed Fills: 1 Fills Dispensed: 0 CPAP Machine AutoCPAP 5-10, Maintenance, [facility], 11/11/21 7:51:00 AM EST, Supply Start Date: 11/11/21 Status: Ordered Medication Dispense Status: Completed Total Allowed Fills: 1 Fills Dispensed: 0 Crestor 20 mg oral tablet 1 tablet = 20 mg, By Mouth, Daily at bedtime, # 30 tablet, 0 Refills, Maintenance, 10/09/20 1:20:00 PM EST, Tablet, Partial fill upon patient request if the prescription is for a schedule II opioid drug. Start Date: 10/09/20 Status: Ordered Medication Dispense Status: Completed Quantity: 30.0 Unit: tablet Total Allowed Fills: 1 Fills Dispensed: 0 folic acid 1 mg oral tablet 1 tablet, By Mouth, Daily, # 30 tablet, 0 Refills, Maintenance, 05/31/11 9:36:46 AM EDT, Tablet Start Date: 05/31/11 Status: Ordered Medication Dispense Status: Completed Quantity: 30.0 Unit: tablet Total Allowed Fills: 1 Fills Dispensed: 0 glucosamine 500 mg oral capsule See Instructions, 1 capsules By Mouth Daily, 0 Refills Start Date: 11/20/07 Status: Ordered Medication Dispense Status: Completed Total Allowed Fills: 1 Fills Dispensed: 0 losartan 25 mg oral tablet 1 tablet = 25 mg, By Mouth, Daily, # 30 tablet, 0 Refills, Maintenance, 03/23/22 11:38:00 AM EDT, Tablet, Partial fill upon patient request if the prescription is for a schedule II opioid drug. Start Date: 03/23/22 Status: Ordered Medication Dispense Status: Completed Quantity: 30.0 Unit: tablet Total Allowed Fills: 1 Fills Dispensed: 0 losartan 50 mg oral tablet 50 mg, 1, tablet, By Mouth, Daily in AM, # 30 tablet, Refills 0, Maintenance, 12/01/23 6:37:00 PM EDT, Partial fill upon patient request if the prescription is for a schedule II opioid drug. Start Date: 12/01/23 Status: Ordered Medication Dispense Status: Completed Quantity: 30.0 Unit: tablet Total Allowed Fills: 1 Fills Dispensed: 0 Magic Mouthwash- Magic Mouthwash-, SWISH AND SPIT 15 MILLILITERS BY MOUTH THREE TO FOUR TIMES A DAY ... (REFER TO PRESCRIPTION NOTES). Start Date: 07/31/23 Status: Ordered Medication Dispense Status: Completed Total Allowed Fills: 1 Fills Dispensed: 0 magnesium glycinate = 400 mg, By Mouth, 3 times a day, 0 Refills, Maintenance, 10/09/20 1:11:00 PM EST, Partial fill upon patient request if the prescription is for a schedule II opioid drug. Start Date: 10/09/20 Status: Ordered Medication Dispense Status: Completed Total Allowed Fills: 1 Fills Dispensed: 0 Methotrexate = 2.5 mg, 4 TABLETS ONCE A WEEK/MONDAY, 0 Refills, Maintenance, 10/09/20 1:12:00 PM EST, Partial fill upon patient request if the prescription is for a schedule II opioid drug. Start Date: 10/09/20 Status: Ordered Medication Dispense Status: Completed Total Allowed Fills: 1 Fills Dispensed: 0 Misc Rx BERBERINE 500 AND 250 MG, Refills 0, Maintenance, 03/23/22 11:37:00 AM EDT, Supply Start Date: 03/23/22 Status: Ordered Medication Dispense Status: Completed Total Allowed Fills: 1 Fills Dispensed: 0 multivitamin Multiple Vitamins oral tablet 1, tablet, By Mouth, Daily, 0 Refills Start Date: 11/20/07 Status: Ordered Medication Dispense Status: Completed Total Allowed Fills: 1 Fills Dispensed: 0 omeprazole 20 mg oral delayed release tablet 1 tablet = 20 mg, By Mouth, 2 times a day, # 30 tablet, 0 Refills, Maintenance, 07/21/25 11:53:00 AM EST, EC Tablet, Partial fill upon patient request if the prescription is for a schedule II opioid drug. Start Date: 07/21/25 Status: Ordered Medication Dispense Status: Completed Quantity: 30.0 Unit: tablet Total Allowed Fills: 1 Fills Dispensed: 0 Orencia ClickJect 125 mg/mL subcutaneous solution 0 Refills, Maintenance, 06/10/24 11:43:00 AM EDT, Partial fill upon patient request if the prescription is for a schedule II opioid drug. Start Date: 06/10/24 Status: Ordered Medication Dispense Status: Completed Total Allowed Fills: 1 Fills Dispensed: 0 pilocarpine 5 mg oral tablet take 1 tablet by mouth three times a day Start Date: 04/03/23 Status: Ordered Medication Dispense Status: Completed Total Allowed Fills: 1 Fills Dispensed: 0 Psyllium Powder By Mouth, Refills 0, Maintenance, 03/23/22 11:38:00 AM EDT, Partial fill upon patient request if theprescription is for a schedule II opioid drug. Start Date: 03/23/22 Status: Ordered Medication Dispense Status: Completed Total Allowed Fills: 1 Fills Dispensed: 0 torsemide 10 mg oral tablet See Instructions, take 1 extra tablet daily x 5 days, # 5 tablet, 0 Refills, Maintenance, 02/27/23 11:42:00 AM EDT, [id number], Partial fill upon patient request if the prescription is for a schedule II opioid drug., 162.56, cm, 02/27/23 11:25:00 EDT, Height Start Date: 02/27/23 Status: Ordered Medication Dispense Status: Completed Quantity: 5.0 Unit: tablet Total Allowed Fills: 1 Fills Dispensed: 0 torsemide 10 mg oral tablet 1 tablet = 10 mg, By Mouth, Daily, # 30 tablet, 0 Refills, Maintenance, 08/13/19 4:22:11 PM EST, Tablet Start Date: 08/13/19 Status: Ordered Medication Dispense Status: Completed Quantity: 30.0 Unit: tablet Total Allowed Fills: 1 Fills Dispensed: 0 Vitamin C 100 mg oral tablet 100 mg, 1, tablet, By Mouth, Daily, 0 Refills Start Date: 11/20/07 Status: Ordered Medication Dispense Status: Completed Total Allowed Fills: 1 Fills Dispensed: 0 Problem List Condition Confirmation Course Effective Dates [...] Team Personnel Name: Brittanie Sahni MD Position: [facility] Physician - Primary Care Member Role: PCP Address: [address] [place] [address] Telecom: Name: Cris Best RN Position: S RN Member Role: Primary Care Nurse Name: Ethel Olmedo RN Position: S RN Member Role: Primary Care Nurse Care Team Related Persons Name: JESIKA LESTER Insurance Providers Guarantor name: FELICITYSHON LESTER Health Plan Information #: 1 Payer: MEDICARE B Payer Identifier: NA Member Number: [id number] Group Number: [id number] Subscriber Identifier: AISHA Relationship to Subscriber: self Coverage Type: NA Coverage Verification Date: NA Telecom: NA Address: [facility] Plan Information #: 2 Payer: [employer] Payer Identifier: AISHA Member Number: [id number] Group Number: [id number] Subscriber Identifier: AISHA Relationship to Subscriber: self Coverage Type: MEDICAID Coverage Verification Date: AISHA Telecom: NA Address:
--- NOTE | 2025-08-22 13:01 | A.OFFVIS_ITS ---
Vital Signs 08/22/25 13:11 Height 5 ft 4 in Weight 197 lb 8.547 oz BMI 33.9 BP 115/74 Blood Pressure Location Lt brachial Position Sitting Pulse 60 Pulse Source Pulse Oximeter Pulse Oximetry (%) 94 Oxygen Delivery Method Room Air Intake Visit Reasons: follow up Intake Note: Patient presents for follow up on RA today and test results. Profiling Machine Set Up Operator Required: No Information Interpreted: non-clinical & clinical Accompanied by: Spouse Allergies betadyne Allergy (Mild, Uncoded 02/13/25 13:14) Itchy HPI Comments Details: Patient is a 80-year-old female with hypertension complicated by peripheral vasc ular disease, hyperlipidemia, osteoporosis, Sjogren's syndrome with keratoconjunctivitis, rheumatoid arthritis here today for follow up Interval History: Patient last seen 02/13/2025 with me. - On methotrexate 10mg weekly, folic acid 1mg daily, Orencia 125mg weekly, pilocarpine 5mg tid, alendronate 70mg weekly - She is here at the appt by herself - is prepping for hip surgery and did not feet strong enough to come with her - Patient wanted to take oral diclofenac - Complaining of numbness to her right index finger Today - On methotrexate 10mg weekly, folic acid 1mg daily, Orencia 125mg weekly, cevimeline 5mg tid, alendronate 70mg weekly - Presenting for management of multiple rheumatologic conditions and evaluation of new musculoskeletal complaints. - Her history is significant for Sjogren's syndrome, which is managed with cevimeline and eye drops. - She also has rheumatoid arthritis, for which she takes methotrexate, folic acid, and Orencia. - The patient has a history of osteoarthritis, causing generalized aches and pains, managed with Tylenol. - Due to impaired kidney function, she avoids oral NSAIDs like ibuprofen but uses topical diclofenac gel, although not as frequently as prescribed. - The patient underwent a reverse shoulder replacement on the right in November 2023 and is now experiencing significant pain with arm movement. - She was seen by a physician assistant account manager at the orthopedic surgeon's office, who performed X-rays that showed the surgical hardware was fine, and recommended physical therapy and blood work. - She has initiated a physical therapy evaluation. - Concurrent with her shoulder issues, an EMG revealed a problem with her right wrist and elbow. - She reports persistent tingling in her right index finger, which affects her ability to perform fine motor tasks. - Her orthopedic PA suggested her arm pain could be referred from a pinched nerve in the neck, and she has scheduled an appointment with a spine surgeon to investigate. - She reports chronic pain and swelling over the arch of her left foot, originating from an injury in 1964. - She manages this with a Velcro brace and nightly application of diclofenac gel. - Additionally, she has a history of chronic back pain managed with an implanted [employer] spinal cord stimulator. - A recent reprogramming of the device successfully alleviated a flare-up of right-sided back pain. Rheumatologic History: Patient was referred to [facility] 08/2022 after being seen by [place] correctional supervisor that retired. Diagnosed around 2011 Unsure of any of her previous DMARDs but came to us on methotrexate and Orencia for more than 5 years and that has controlled her RA Also presented with sicca symptoms, SSA and SSB negative. Initially on cevimeline with improvement in her symptoms however this was changed to pilocarpine 07/2024 due to insurance issues Initial history: This is a 77-year-old female with a history of anxiety, obstr uctive sleep apnea, hypertension, fibromyalgia, dyslipidemia who presents for rheumatoid arthritis. Patient was diagnosed with rheumatoid arthritis more than [address] Garrett. She is not aware of her previous DMARDs but she had been on the combination p.o. methotrexate and weekly Orencia for more than 5 years with apparent good control of her RA. Patient states that her RA is cur rently well controlled. Her main complaint is left foot pain. Current Rheumatology Medication(s): Methotrexate 10mg weekly Folic acid 1 mg daily Orencia 125mg weekly Pilocarpine 5mg tid Alendronate 70mg weekly [facility] Medical History (Updated 10/15/24 @ 15:39 by Julia Goodman MD) half-way (current) use of immunosuppressive biologic Osteoarthritis of hands, bilateral Transient global amnesia Chronic ankle pain Edema, lower extremity Fibromyalgia Spinal stenosis of lumbar region Rheumatoid arthritis GERD (gastroesophageal reflux disease) Chronic diastolic heart failure Essential hypertension Autonomic neuropathy GRACIELA (obstructive sleep apnea) Depression Obesity Mixed hyperlipidemia Surgical History S/P shoulder joint replacement History of cataract surgery History of right hip replacement History of left hip replacement S/P right rotator cuff repair History of left knee replacement History of total right knee replacement H/O right wrist surgery S/P insertion of spinal cord stimulator Hx of colonoscopy H/O arthroscopy of shoulder History of back surgery Hx of appendectomy History of mitral valve repair Family History Father Prostate cancer Mother Colon cancer Social History Household Members: Spouse Housing: House Alcohol intake: current Alcohol intake frequency: holidays/special occasions only Alcohol type: wine Patient Tobacco Use Status: Never used Tobacco e-Cigarette/Vaping Use: Never Used service: No Current occupational status: retired 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 - Mouth: Reports symptoms consistent with dry mouth, managed with cevimeline. - Musculoskeletal: Reports significant pain with movement in her right shoulder post-arthroplasty. - Reports pain and swelling on the top of her left foot. - Reports generalized aches and pains from osteoarthritis. - Reports recent right-sided back pain which has improved after spinal cord stimulator adjustment. - Denies significant discomfort in her hands other than the index finger. - Neurological: Reports persistent tingling in her right index finger. All other systems reviewed and are unremarkable except noted above Physical Exam Exam Exam: Vital signs reviewed Physical Examination CONSTITUITIONAL Patient alert and cooperative. Well appearing and in no apparent painful distress MSK Hands * Significant Heberden's and Eva's nodes with deformities however there is no tenderness to palpation and no evidence of synovitis. Second and 3rd MCPs of bilateral hands with synovial hypertrophy. No tenderness to palpation. Wrists * Full range of motion to the right wrist without any synovial hypertrophy left wrist with synovial hypertrophy but no tenderness to palpation. Surgical scar seen over the anterior of the forearm which is the location of her previous ulnar shortening surgery Elbows * Right Elbow: Full ROM. No swelling or TTP. No TTP of the medial epicondyle. No TTP of the lateral epicondyle * Left Elbow: Full ROM. No swelling or TTP. No TTP of the medial epicondyle. No TTP of the lateral epicondyle Shoulders * Right shoulder: No swelling noted. No TTP of the AC joint. No TTP of the subacromial bursa. No TTP of the posterior shoulder * Left shoulder: No swelling noted. No TTP of the AC joint. No TTP of the subacromial bursa. No TTP of the posterior shoulder * Decreased ROM bilaterally Knees * Right knee: No swelling noted. No TTP of the knee joint line. No TTP of pes anserine bursa * Left knee: No swelling noted. No TTP of the knee joint line. No TTP of pes anserine bursa. * Crepitations felt bilaterally Ankles * Mild pitting edema to bilateral ankles noted. Left ankle with brace. Results Reviewed Results Reviewed: 02/10/25 VMG 08/13/25 VMG WBC 9.68 Hb 12.9 Plt 236 BUN 1.0 Cr 20 eGFR 57.3 AST 26 ALT 29 dsDNA ESR 7 CRP <5.0 T spot Negative Hepatitis B Negative Hepatitis C Negative Assessment & Plan Assessment & Plan (1) Rheumatoid arthritis: Comment: Per notes it states that it is seropositive Labs in 10/03 showed negative RF negative CCP Code(s): M06.9 - Rheumatoid arthritis, unspecified Category: Medical Qualifiers: Rheumatoid arthritis location: multiple sites Rheumatoid factor presence: unspecified presence Qualified Code(s): M06.9 - Rheumatoid arthritis, unspecified Plan: #Seronegative erosive RA Patient is a 80-year-old female with longstanding history of seronegative erosive rheumatoid arthritis. Her disease currently is in remission We will continue her medications as prescribed no changes made today Plan - Methotrexate 10mg PO weekly - Folic acid 1mg PO daily - Orencia 125mg weekly SC - RTC 6 months - Labs before next visit: CBC, CMP, ESR, CRP (2) Keratoconjunctivitis sicca: Code(s): M35.01 - Sjogren syndrome with keratoconjunctivitis Category: Medical Plan: #Sjogrens syndrome Patient recently switched from cevimeline took pilocarpine due to insurance: The prior no longer being on formulary. No changes to sx Plan - Pilocarpine 5mg tid - Biotene mouthwash 15mL daily (3) Osteoarthritis of hands, bilateral: Code(s): M19.041 - Primary osteoarthritis, right hand; M19.042 - Primary osteoarthritis, left hand Category: Medical Qualifiers: Osteoarthritis type: other secondary Qualified Code(s): M19.241 - Secondary osteoarthritis, right hand; M19.242 - Secondary osteoarthritis, left hand Plan: #Bilateral hand OA For generalized pain from osteoarthritis, the patient will continue using Tylenol as needed. She can also continue using topical diclofenac gel on her right index finger and left foot. It was noted that using the gel only once daily may not provide its full therapeutic benefit. Plan - Topical diclofenac 1% qid - Copper arthritis gloves (4) Cervicalgia: Code(s): M54.2 - Cervicalgia Plan: #Cervicalgia with suspected radiculopathy The patient's right arm symptoms may be related to cervical radiculopathy, as suggested by her orthopedics PA. The patient has an appointment scheduled with a spine surgeon for further evaluation. We discussed that an MRI is the preferred imaging modality but requires a precedent X-ray for insurance purposes. The patient agreed to wait for the plant controls specialist to order any imaging, ensuring they can view the films directly. (5) Osteoporosis: Comment: DEXA 01/2023 Right total forearm T-score -3.7 Right 1/3 forearm T-score -4.3 Right UD forearm T-score -1.9 Bilateral hip replacements. Right shoulder replacement Alendronate 01/2024 Code(s): M81.0 - Age-related osteoporosis without current pathological fracture Category: Medical Qualifiers: Osteoporosis type: age-related Presence of current pathological fracture: without current pathological fracture Qualified Code(s): M81.0 - Age- related osteoporosis without current pathological fracture Plan: #Osteoporosis with femur fracture Continue alendronate (6) Methotrexate, care home, current use: Code(s): Z79.631 - half-way (current) use of antimetabolite agent Category: Medical Plan: #Long-term Current Use of Methotrexate Discussed with patient the benefits and risks of methotrexate for managing their rheumatic condition Benefits include reduced pain, reduced mortality, maintenance of remission and reduction of flares Risks include oral ulcers, photosensitivity, hepatotoxicity, hematologic toxicity, pneumonitis, flu-like symptoms (especially day after administration), nodulosis, lymphomas ? Limit alcohol and avoid Bactrim ? Monitoring: ?CBC, BMP, LFTs every 3-4 months and hepatitis serologies as needed (7) vermin exterminator (current) use of immunosuppressive biologic: Code(s): Z79.620 - half-way (current) use of immunosuppressive biologic Category: Medical Plan: #Long-term Use of TNF Inhibitors: Abatacept Discussed with the patient the benefits and risks of abatacept for the management of the rheumatic condition Benefits include reduce pain, maintenance of remission and reduction of flares as well as ?progression of the disease Risks include injection sites/infusion reactions, serious infections (such as bacterial infections, opportunistic infections), malignancy Recommended rotating injection sites, and holding medication during and for up to 1 week after resolution of a febrile illness or open skin wound (8) Encounter for ongoing osteoporosis therapy, bisphosphonates: Code(s): M81.0 - Age-related osteoporosis without current pathological fracture; Z79.83 - half-way (current) use of bisphosphonates Plan: #Long-term Use of Bisphosphonates Risks and benefits of bisphosphonates in the management of osteoporosis Benefits include improved bone density, decreased fracture risk Risks include atypical femoral fractures, GI upset, esophageal strictures Contraindicated in patients with a creatinine clearance < 30 to 35 ml/min Keep vitamin-D at least 35 ng/mL Plan I spent 30 minutes reviewing the record and labs, taking a history, examining the patient, discussing the treatment plan and documenting in the medical record Coding Level of Care Code Est Pt Level 4 (06582) Add On Problem Visit Only Diagnoses Rheumatoid arthritis involving multiple sites, unspecified whether rheumatoid factor present M06.9 Rheumatoid arthritis location: multiple sites Rheumatoid factor presence: unspecified presence Keratoconjunctivitis sicca M35.01 Other secondary osteoarthritis of both hands M19.241; M19.242 Osteoarthritis type: other secondary Cervicalgia M54.2 Age-related osteoporosis without current pathological fracture M81.0 Osteoporosis type: age-related Presence of current pathological fracture: without current pathological fracture Methotrexate, salvage determiner, current use Z79.631 vermin exterminator (current) use of immunosuppressive biologic Z79.620 Encounter for ongoing osteoporosis therapy, bisphosphonates M81.0; Z79.83
[2025-08-22 13:11] VITALS: BP 115/74; PULSE 60; O2SAT 94; BMI 33.9
--- OUTSIDE RECORDS SUMMARY | 2025-08-22 18:36 | XMS_ITS | Encounter Summary ---
Author Organization [employer] Address [address] [facility] [address] [place] [address] Care Team Providers Care Roll Builder Name Role Phone Unavailable Primary Care Provider [...] as of this encounter Plan of Treatment Upcoming Encounters Date Type Department Care Team (Late st Contact Info) Description 09/25/2025 11:00 AM EST Office Visit [facility] DENTAL [address] [place] [address] Pari Forte DDS [address] [place] [address] 10/02/2025 11:00 AM EST Office Visit [facility] DENTAL [address] [place] [address] Pari Forte DDS [address] [place] [address] 10/09/2025 12:00 PM EST Office Visit [facility] DENTAL [address] [place] [address] Pari Forte DDS [address] [place] [address] 10/16/2025 11:00 AM EST Office Visit [facility] DENTAL [address] [place] [address] Pari Forte DDS [address] [place] [address] 02/10/2026 11:00 AM EDT Office Visit [facility] DENTAL [address] [place] [address] Parris Sanchez documented as of this encounter Visit Diagnoses Not on filedocumented in this encounter
--- OUTSIDE RECORDS SUMMARY | 2025-08-22 18:36 | XMS_ITS | Encounter Summary ---
Author Organization [employer] Address [address] [facility] [address] [place] [address] Care Team Providers Care Vocational Training Director Name Role Phone Unavailable Primary Care [...] Description 09/25/2025 11:00 AM EST Office Visit [facility] DENTAL [address] [place] [address] Pari Forte DDS [address] [place] [address] 10/02/2025 11:00 AM EST Office Visit [facility] DENTAL [address] [place] [address] Pari Forte DDS [address] [place] [address] 10/09/2025 12:00 PM EST Office Visit [facility] DENTAL [address] [place] [address] Pari Forte DDS [address] [place] [address] 10/16/2025 11:00 AM EST Office Visit [facility] DENTAL [address] [place] [address] Pari Forte DDS [address] [place] [address] 02/10/2026 11:00 AM EDT Office Visit [facility] DENTAL [address] [place] [address] Parris Sanchez documented as of this encounter Visit Diagnoses Not on filedocumented in this encounter
--- OUTSIDE RECORDS SUMMARY | 2025-08-22 18:37 | XMS_ITS | Clinical Summary ---
Author Organization [facility] Address [facility] [place] [address] Care Team Providers Care Hospital Cleaner Name Role Phone Brittanie Sahni MD Primary Care Provider [phone] Allergies Active Allergy Reactions Criticality Noted Date Comments Povidone-Iodine Itching 08/22/2022 Medications GLUCOSAMINE SULFATE ORAL Take 1,550 mg by mouth Daily. Active torsemide (Demadex) 10 mg Tablet Take 10 mg by mouth. 2 Active rosuvastatin (Crestor) 40 mg Tablet Take 40 mg by mouth. 2 Active Psyllium Powder Take by mouth. Active omeprazole (PriLOSEC) 20 mg Capsule, Delayed Release(E.C.) Take 20 mg by mouth. 2 Active metHOTREXate 2.5 mg Tablet take 4 tablets by mouth EVERY MONDAY DIRECTED 2 Active losartan (Cozaar) 25 mg Tablet Take 25 mg by mouth every evening. 2 Active lidocaine (Lidoderm) 5% Adhesive Patch, Medicated APPLY 1 PATCH TO THE AFFECTED AREA DAILY. LEAVE ON FOR 12 HOURS AND THEN OFF FOR 12 HOURS 9 Active abatacept (Orencia) 125 mg/mL Syringe SMARTSI Milliliter(s) SUB-Q Once a Week 2 Active MAGNESIUM GLYCINATE ORAL Take 400 mg by mouth Twice daily. Active amoxicillin (Amoxil) 500 mg Capsule take 4 capsules by mouth before DENTAL PROCEDURE 8 Active ascorbic acid, Vitamin C, (Vitamin C) 500 mg Tablet Take 500 mg by mouth Three times a day. Active aspirin EC 81 mg Tablet, Delayed Release (E.C.) Take 81 mg by mouth. Active atenoloL (Tenormin) 50 mg Tablet Take 50 mg by mouth. 2 Active calciTRIoL (Rocaltrol) 0.5 mcg Capsule Take 0.5 mcg by mouth once a week. 2 Active cevimeline (EVOXAC) 30 mg Capsule Take 30 mg by mouth. 2 Active multivitamin (THERAGRAN) Tablet Take 1 tablet by mouth Daily. Active xelky-5y-hxn-ep a-fish oil-D3 350 mg- 1,000 unit Capsule Take 1,000 mg by mouth daily. Active folic acid (Folvite) 1 mg Tablet Take 1,000 mcg by mouth. 2 Active venlafaxine (EFFEXOR) 75 mg Tablet Take 75 mg by mouth daily. Active Active Problems No known active problems Social History Tobacco Use Types Packs/Day Years Used Date Smoking Tobacco: Never Assessed Comments Unknown Sex and Gender Information Value Date Recorded Sex Assigned at Not on file Legal Sex Female 8:48 AM EDT Gender Identity Not on file Sexual Orientation [...] - 1-dose 75+ series) 2021 Covid-19 Vaccine (3 - season) 05/12/202503/2021, 11/16/2020 Influenza (Flu) vaccine (1 o f 1 - Influenza standard series) 05/12/2025 [place] [id number] MEDICAID MANAGED [place] Advance Directives Documents on File Type Date Recorded Patient Industrial Therapist Expl anation Personal Industrial Therapist 08/24/2022 2:24 PM Care Teams Hospital Cleaner Relationship Specialty Start Date End Date Brittanie Sahni MD [address] [place] [phone] PCP - General Internal Medicine 08/22/22
--- OUTSIDE RECORDS SUMMARY | 2025-08-22 18:37 | XMS_ITS | Clinical Summary ---
Author Organization [facility] Address [address] [place] [address] Care Team Providers Care Nuclear Instructor Name Role Phone Brittanie Sahni MD Primary Care Provider [phone] Allergies Active Allergy Reactions Criticality Noted Date [...] mg by mouth 2 times daily. Active sdjqm-0i-bck-ep a-fish oil-D3 350 mg- 1,000 unit capsule [...] ng multiple sites with positive rheumatoid factor 08/20/2022 Family History Medical History Relation Name [...] Last Done Comments Hepatitis C Screening 1945 Medicare AWV 1946 DTaP,Tdap,and Td Vaccines (1 - Tdap) 02/10/1968 Osteoporosis Screening 02/10/1996 Pneumococcal Vaccine: 50+ Years (1 of 1 - PCV) 02/10/1996 Zoster Vaccines (1 of 2) 02/10/1996 RSV Vaccine (60+ years old and patients) (1 - 1-dose 75+ series) 2021 Alcohol/Substance Use Screening 09/11/2024 Depression Screening and Follow-Up 09/11/2024 Fall Risk Screening 09/11/2024 Health Care Proxy Review 09/11/2024 Social Drivers of Health Annual Screening 09/11/2024 Influenza Vaccine (#1) 2025 COVID-19 Vaccine (3 - 2024-2 6 season) 2025 12/16/2020, 11/16/2020 Hepatitis B Vaccines Aged Out No long er eligible based on patient's age to complete this topic Insurance MEDICARE [facility] Care Teams Nuclear Instructor Relationship Specialty Start Date End Date Brittanie Sahni MD [facility] [address] [place] [address] [phone] PCP - General Internal Medicine 07/06/22
--- OUTSIDE RECORDS SUMMARY | 2025-08-22 18:37 | XMS_ITS | Encounter Summary ---
Author Organization [employer] Address [address] [facility] [address] [place] [address] Care Team Providers Care Rv Repair Technician Name Role Phone Unavailable Primary Care Provider [...] Description 09/25/2025 11:00 AM EST Office Visit [facility] DENTAL [address] [place] [address] Pari Forte DDS [address] [place] [address] 10/02/2025 11:00 AM EST Office Visit [facility] DENTAL [address] [place] [address] Pari Forte DDS [address] [place] [address] 10/09/2025 12:00 PM EST Office Visit [facility] DENTAL [address] [place] [address] Pari Forte DDS [address] [place] [address] 10/16/2025 11:00 AM EST Office Visit [facility] DENTAL [address] [place] [address] Pari Forte DDS [address] [place] [address] 02/10/2026 11:00 AM EDT Office Visit [facility] DENTAL [address] [place] [address] Parris Sanchez documented as of this encounter Visit Diagnoses Not on filedocumented in this encounter
--- OUTSIDE RECORDS SUMMARY | 2025-08-22 18:37 | XMS_ITS | Encounter Summary ---
Author Organization [employer] Address [address] [place] [address] [address] [address] Care Team Providers Care Wash Box Operator Name Role Phone Unavailable Primary Care Provider Unavailabl e Reason for Visit * Reason Comments Med Refill Encounter Details Date Type Department Care Team (Late st Contact Info) Description 12/08/2024 Refill [facility] DENTAL [address] [place], [place] [phone] Pari Forte DDS [address] [place], [place] [phone] Social History Tobacco Use Types Packs/Day Years [...] Telephone Encounter - Pari Forte DDS - 12/09/2024 11:52 AM EDT Pt uses Magic Mouthrinse for chronic dry mouth/sjogrens syndrome. documented in this encounter Plan of Treatment Upcoming Encounters Date Type Department Care Team (Late st Contact Info) Description 09/25/2025 11:00 AM EST Office Visit [facility] DENTAL [address] [place], [place] [phone] Pari Forte DDS [address] [place], [place] [phone] 10/02/2025 11:00 AM EST Office Visit [facility] DENTAL [address] [facility] [place] [address] Pari Forte, DDS [address] [facility] [place] [address] 10/09/2025 12:00 PM EST Office Visit [facility] DENTAL [address] [facility] [place] [address] ReannaPari, CRISS [address] [facility] [place] [address] 10/16/2025 11:00 AM EST Office Visit [facility] DENTAL [address] [facility] [place] [address] Pari Forte DDS [address] [facility] [place] [address] 02/10/2026 11:00 AM EDT Office Visit [facility] DENTAL [address] [facility] [place] [address] Parris Sanchez documented as of this encounter Visit Diagnoses Not on filedocumented in this encounter
--- OUTSIDE RECORDS SUMMARY | 2025-08-22 18:37 | XMS_ITS | Encounter Summary ---
Author Organization [employer] Address [address] [place] [address] [address] [address] Care Team Providers Care Histotechnician Name Role Phone Unavailable Primary Care Provider Unavailabl e Reason for Visit * Reason Comments Med Refill Encounter Details Date Type Department Care Team (Late st Contact Info) Description 02/15/2023 Refill [facility] DENTAL [address] [place] [address] Pari Forte DDS [address] [place], [place] [phone] Social History Tobacco Use Types Packs/Day Years [...] Encounters Date Type Department Care Team (Late Contact Info) Description 09/25/2025 11:00 AM EST Office Visit [facility] DENTAL [address] [place] [address] Pari Forte DDS [address] [place] [address] 10/02/2025 11:00 AM EST Office Visit [facility] DENTAL [address] [place] [facility] [place] [address] Pari Forte, DDS [address] [place] [address] 10/09/2025 12:00 PM EST Office Visit [facility] DENT[facility] [address] [place] [facility] [place] [address] Pari Forte, DDS [address] [facility], [place] [id number] 10/16/2025 11:00 AM EST Office Visit [facility] DENTAL [address] [facility], [place] [phone] Pari Forte, DDS [address] [facility], [place] [id number] 02/10/2026 11:00 AM EDT Office Visit [facility] DENTAL [address] [facility], [place] [phone] Parris Sanchez documented as of this encounter Visit Diagnoses Not on filedocumented in this encounter
--- OUTSIDE RECORDS SUMMARY | 2025-08-22 18:37 | XMS_ITS | Encounter Summary ---
Author Organization [employer] Address [address] [facility] 7 [place] [address] Care Team Providers Care Shaker Operator Name Role Phone Unavailable Primary Care Provider Unavailabl e Encounter Details Date Type Department Care Team (Late st Contact Info) Description 10/27/[address] [facility] DENTAL [address] [place] [address] Piedad Maria LLD [address] [place] [address] Social History Tobacco Use Types Packs/Day Years [...] Description 09/25/2025 11:00 AM EST Office Visit [facility] DENTAL [address] [place] [address] Pari Forte DDS [address] [place], [place] [phone] 10/02/2025 11:00 AM EST Office Visit [facility] DENTAL [address] [place] [address] Pari Forte DDS [address] [place] [address] 10/09/2025 12:00 PM EST Office Visit [facility] DENTAL [address] [facility] [place] [address] Pari Forte DDS [address] [place] [facility] [place] [address] 10/16/2025 11:00 AM EST Office Visit [facility] DENTAL [address] [facility] [place] [address] Pari Forte, CRISS [address] [place] [facility] [place] [address] 02/10/2026 11:00 AM EDT Office Visit [facility] DENTAL [address] [facility] [place] [address] Parris Sanchez documented as of this encounter Visit Diagnoses Not on filedocumented in this encounter
--- OUTSIDE RECORDS SUMMARY | 2025-08-22 18:37 | XMS_ITS | Clinical Summary ---
Author Organization [employer] Address [address] [facility] [address] [place] [address] Care Team Providers Care Solar Technician Name Role Phone Unavailable Primary Care [...] by mouth in the morning. 2 Active magic mouthwash (lidocaine, diphenhydrAMINE , Maalox 1:1:1) Swish and spit 15 mL every 4 (four) hours if needed for stomatitis. 300 each 3 5 Active amoxicillin (Amoxil) 500 MG capsule take 4 capsules by mouth AT ONCE 1 HOUR PRIOR TO DENTAL PROCEDURE 12 capsule 3 5 Active alendronate (Fosamax) 70 MG tablet Take 70 mg by mouth 1 (one) time per week. Active Active Problems Problem Noted Date Diagnosed Date History of total right hip replacement 8 Overview (09/08/2022): Right total hip arthroplasty on January 03, [address] Sang Quintanilla. Last Assessment & Plan: 1 year status post right total hip replacement and doing well with that. Encounters Date Type Department Care Team Description 08/11/2025 11:00 AM EST Office Visit [facility] DENTAL [address] [place] [address] Parris Sanchez Tooth abrasion (Primary Dx); Dental calculus; Dental caries; Encounter for dental examination; Stage 2 grade B generalized periodontitis per AAP/EFP 2017 classification 06/19/2025 12:00 PM EDT Office Visit [facility] DENTAL [address] [place] [address] Pari Forte DDS Recurrent dental caries extending into dentin (Primary Dx); Defective dental oriental orthodox; Fractured dental oriental orthodox with loss of material from Last 3 Months Social History Tobacco Use Types Packs/Day Years Used Date Smoking Tobacco: Never Smokeless Tobacco: Never Tobacco Cessation:Counseling Given: Not Answered Alcohol Answer Date Recorded Frequency of Alcohol Consumption Not on file 08/11/2025 Average Number of Drinks Not on file 025 How often do you have six or more drinks on one occasion? 1 08/11/2025 Comments Unknown Sex and Gender Information Value Date Recorded Sex Assigned at Female 09/01/2022 1:37 PM EST Legal Sex Female 5:35 PM EDT Gender Identity Female 09/01/2022 1:37 PM EST Sexual Orientation Choose not to disclose 2021 8:14 AM EST Sexual Orientation Straight 09/09/2022 8: 14 AM EST Last Filed Vital Signs Vital Sign Reading Time Taken Comments Blood Pressure 139/73 08/11/2025 11:10 AM EST Pulse 73 08/11/2025 11:10 AM EST Temperature 36.5 C (97.7 F) 12/01/2022 10:15 AM EDT Respiratory Rate - - Oxygen Saturation - - Inhaled Oxygen Concentration - - Weight - - Height - - Body Mass Index - - Plan of Treatment Upcoming Encounters Date Type Department Care Team (Late st Contact Info) Description 09/25/2025 11:00 AM EST Office Visit [facility] DENTAL [address] [place] [address] Pari Forte DD [address] [place] [address] 10/02/2025 11:00 AM EST Office Visit [facility] DENTAL [address] [place] [address] Pari Forte DD [address] [place] [address] 10/09/2025 12:00 PM EST Office Visit [facility] DENTAL [address] [place] [address] Pari Forte DDS [address] [place] [address] 10/16/2025 11:00 AM EST Office Visit [facility] DENTAL [address] [place] [address] Pari Forte DD [address] [place] [address] 02/10/2026 11:00 AM EDT Office Visit [facility] D[facility]AL [address] [place] [address] Daniel Parris Health Maintenance Due Date Last Done Comments Depression Screening 1945 Lipid Panel 1945 SDOH Screening 1945 Hepatitis C Screening 02/10/1964 DTaP/Tdap/Td Vaccines (1 - Tdap) 1965 Pneumococcal Vaccine: 50+ Years (1 of 1 - PCV) 02/10/1996 Zoster Vaccines (1 of 2) 02/10/1996 RSV Patients and Patients Aged 60 years or older (1 - 1-dose 75+ series) 2021 COVID-19 Vaccine (3 - 2024- season) 2025 12/16/2020, 11/16/2020 Influenza Vaccine (#1) 2025 06/08/2018, 2007 Dental Oral Exam 02/10/2026 08/11/2025, 08/2024, 04/04/2023, Additional history exists Dental Prophylaxis 02/10/2026 08/11/2025, 0 11/21/2023, 04/04/2023, Additional history exists Dental X-Ray: Bitewings 04/24/2026 04/23/20, 11/21/2023, 09/08/2022, Additional history exists Alcohol/Substance Use Screening 08/11/2026 08/11/2025 Tobacco Screening 08/11/2026 08/11/2025 Dental X-Ray: Full Mouth 11/21/2026 11/21/2023, 08/12 [...] patient's age to complete this topic Meningococcal B Vaccine Aged Out No l onger eligible based on patient's age to complete [...] Procedure Name Priority Date/Time Associated Diagnosis Comments CASE PRESENTATION, DETAILED AND EXTENSIVE TREATMENT PLANNING Routine 08/11/2025 11:00 AM EST ORAL HYGIENE INSTRUCTIONS Routine 08/11/2025 11:00 AM EST Full PROPHYLAXIS - ADULT Routine 025 11:00 AM EST PERIODIC ORAL EVALUATION - ESTABLISHED PATIENT Routine 08/11/2025 11:00 AM EST CASE PRESENTATION, DETAILED AND EXTENSIVE TREATMENT PLANNING Routine 06/19/2025 12:00 PM EDT Recurrent dental caries extending into dentin Defective dental oriental orthodox 30 MO RESIN-BASED COMPOSITE - 2 SURF, POSTERIOR Routine 06/19/2025 12:00 PM EDT Recurrent dental caries extending into dentin Defective dental oriental orthodox 29 MO RESIN-BASED COMPOSITE - 2 SURF, POSTERIOR Routine 06/19/2025 12:00 PM EDT Recurrent dental caries extending into dentin Defective dental oriental orthodox 28 GER RESIN-BASED COMPOSITE - 3 SURF, POSTERIOR Routine 06/19/2025 12:00 PM EDT Recurrent dental caries extending into dentin Defective dental oriental orthodox BITEWING - SINGLE RADIOGRAPHIC IMAGE Routine 04/23/2025 12:00 PM EDT INTRAORAL - COMPLETE SERIES OF RADIOGRAPHIC IMAGES Routine 11/21/2023 12:00 PM EDT from Last 3 Months or Most Recently Relevant to Health Maintenance [facility] STAND ADULT DENTAL - HSN FULL (MEDICAID)
--- OUTSIDE RECORDS SUMMARY | 2025-08-22 18:37 | XMS_ITS | Encounter Summary ---
Author Organization [employer] Address [address] [facility] 7 [place] [address] Care Team Providers Care Cardiac Cath Technologist Name Role Phone Unavailable Primary Care Provider [...] Description 09/25/2025 11:00 AM EST Office Visit [facility] DENTAL [address] [place] [address] Pari Forte DDS [address] [place] [address] 10/02/2025 11:00 AM EST Office Visit [facility] DENTAL [address] [place] [address] Pari Forte DDS [address] [place] [address] 10/09/2025 12:00 PM EST Office Visit [facility] DENTAL [address] [place] [address] Pari Forte DDS [address] [place] [address] 10/16/2025 11:00 AM EST Office Visit [facility] DENTAL [address] [place] [address] Pari Forte DDS [address] [place] [address] 02/10/2026 11:00 AM EDT Office Visit [facility] DENTAL [address] [place] [address] Parris Sanchez documented as of this encounter Visit Diagnoses Not on filedocumented in this encounter
--- OUTSIDE RECORDS SUMMARY | 2025-08-22 18:37 | XMS_ITS | Encounter Summary ---
Author Organization [employer] Address [address] [place] [address] [address], [place] [address] Care Team Providers Care Lopper Name Role Phone Unavailable Primary Care Provider Unavailabl e Reason for Visit * Reason Comments Med Refill Encounter Details Date Type Department Care Team (Late st Contact Info) Description 05/28/2024 Refill [facility] DENTAL [address] [place], [place] [phone] Pari Forte DDS [address] [place], [place] [phone] Social History Tobacco Use Types Packs/Day Years [...] Description 09/25/2025 11:00 AM EST Office Visit [facility] DENTAL [address] [place], [place] [phone] Pari Forte DDS [address] [place], [place] [phone] 10/02/2025 11:00 AM EST Office Visit [facility] DENTAL [address] [place] [address] ReannaPari, DDS [address] [facility], [place] [phone] 10/09/2025 12:00 PM EST Office Visit [facility] DENTAL [address] [place] [address] Pari Forte, CRISS [address] [facility], [place] [phone] 10/16/2025 11:00 AM EST Office Visit [facility] DENTAL [address] [place] [address] Pari Forte, CRISS [address] [facility], [place] [phone] 02/10/2026 11:00 AM EDT Office Visit [facility] DENTAL [address] [facility], [place] [phone] Parris Sanchez documented as of this encounter Visit Diagnoses Not on filedocumented in this encounter
== END 2025-08-22 14:04 | disposition home or self-care (01) ==
LOC: HO.RHES 12:57
PROVIDERS: PCP Internal Medicine; Visit Provider Student in an Organized Health Care Education/Training Program
DX: M06.9 Rheumatoid arthritis, unspecified (principal); M35.01 Sjogren syndrome with keratoconjunctivitis; M19.241 Secondary osteoarthritis, right hand; M19.242 Secondary osteoarthritis, left hand; M54.2 Cervicalgia; M81.0 Age-related osteoporosis without current pathological fracture; Z79.631 Long term (current) use of antimetabolite agent; Z79.620 Long term (current) use of immunosuppressive biologic; Z79.83 Long term (current) use of bisphosphonates
CPT/HCPCS: 99214; G2211

== ENCOUNTER → 2025-08-22 12:56 | Outpatient (BNVA) | payer MEDICARE, MEDICAID, SELFPAY | PROVIDERS: PCP Internal Medicine; Visit Provider Student in an Organized Health Care Education/Training Program | DX: M06.09 Rheumatoid arthritis without rheumatoid factor, multiple sites (principal); M35.01 Sjogren syndrome with keratoconjunctivitis; M19.041 Primary osteoarthritis, right hand; M19.042 Primary osteoarthritis, left hand; M54.2 Cervicalgia; M81.0 Age-related osteoporosis without current pathological fracture; Z79.631 Long term (current) use of antimetabolite agent; Z79.620 Long term (current) use of immunosuppressive biologic | CPT/HCPCS: 99212 ==